=== PATIENT | male | born 1960 | race African-American/Black ===

== ENCOUNTER 2017-08-05 05:21 | Emergency (ER) | payer MEDICAID, OTHER ==
[2017-08-05] MEDS ORDERED: Dextrose 50% Abboject 50 ML SYRINGE ONE (05:36)
[2017-08-05 05:48] LABS: #Basophils 0.1 thou/uL (0.0-0.2); #Eosinphils 0.1 thou/uL (0.0-0.7); #Lymphocytes 2.2 thou/uL (1.20-3.40); #Monocytes 0.6 thou/uL (0.11-0.59); #Neutrophils 5.1 thou/uL (1.40-6.50); %Basophils 0.6 % (0.0-1.0); %Eosinophils 1.8 % (0.0-10.0); %Lymphocytes 27.2 % (21.0-51.0); %Monocytes 7.3 % (0.0-10.0); Red Blood Cell (RBC) Count 5.36 mill/uL (4.70-6.10)
[2017-08-05] MEDS ORDERED: Ketorolac Tromethamine 30 MG/ML VIAL ONE (06:08)
[2017-08-05 06:12] LABS: ALT (SGPT) 9 U/L (8-55); AST (SGOT) 12 U/L (5-34); Alkaline Phosphatase 74 U/L (40-150); Anion Gap 15 mmol/L (10-20); BUN (Urea Nitrogen) 16 mg/dL (8.4-25.7); Bilirubin, Total 0.3 mg/dL (0.2-1.2); CK (CPK) 88 U/L (30-200); Calc. Creatinine Clearance 0 mL/min (70-130); Carbon Dioxide 25 mmol/L (22-29); Chloride 105 mmol/L (98-107); Estimated GFR-MDRD Greater than 90; Globulin 3.3 g/dL (2.4-3.5); Protein, Total 7.3 g/dL (6.0-8.3)
--- NOTE | 2017-08-05 07:15 | RAD ---
3 VIEWS LEFT SHOULDER: Date: 08/05/17 INDICATION: Shoulder pain. COMPARISON: Prior exam dated 04/03/15. FINDINGS: Mild glenohumeral and moderate AC joint osteoarthrosis is similar. Visualized left lung appears with in normal limits. IMPRESSION: No acute osseous abnormality. POS: [facility]
== END 2017-08-05 08:25 | disposition home or self-care (01) ==
LOC: ERS 05:21
DX: E10.649 Type 1 diabetes mellitus with hypoglycemia without coma (principal); T84.84XA Pain due to internal orthopedic prosthetic devices, implants and grafts, initial encounter; M25.512 Pain in left shoulder; E78.5 Hyperlipidemia, unspecified; I10 Essential (primary) hypertension; F20.9 Schizophrenia, unspecified; I25.2 Old myocardial infarction; F41.9 Anxiety disorder, unspecified; J45.909 Unspecified asthma, uncomplicated; Z86.73 Personal history of transient ischemic attack (TIA), and cerebral infarction without residual deficits
CPT/HCPCS: 36416; 80053; 85025; 96374; 96375; J1885

== ENCOUNTER 2017-08-06 01:33 | Emergency (ER) | payer OTHER ==
[2017-08-06 02:45] LABS: Anion Gap 15 mmol/L (10-20); BUN (Urea Nitrogen) 23 mg/dL (8.4-25.7); Calc. Creatinine Clearance 0 mL/min (70-130); Calcium 9.3 mg/dL (7.8-10.44); Carbon Dioxide 19 mmol/L (22-29); Chloride 105 mmol/L (98-107); Estimated GFR-MDRD 77
== END 2017-08-06 03:35 | disposition home or self-care (01) ==
LOC: ERS 01:33
DX: E10.649 Type 1 diabetes mellitus with hypoglycemia without coma (principal); E78.5 Hyperlipidemia, unspecified; I10 Essential (primary) hypertension; J45.909 Unspecified asthma, uncomplicated; F41.9 Anxiety disorder, unspecified; F32.9 Major depressive disorder, single episode, unspecified; F20.9 Schizophrenia, unspecified; Z86.73 Personal history of transient ischemic attack (TIA), and cerebral infarction without residual deficits
CPT/HCPCS: 36416; 80048; 99285

== ENCOUNTER 2017-08-07 09:09 | Emergency (ER) | payer OTHER | END 2017-08-07 09:57 | disposition home or self-care (01) | LOC: ERS 09:09 | DX: G89.18 Other acute postprocedural pain (principal); M25.512 Pain in left shoulder; E78.5 Hyperlipidemia, unspecified; E10.9 Type 1 diabetes mellitus without complications; I10 Essential (primary) hypertension; J45.909 Unspecified asthma, uncomplicated; F41.9 Anxiety disorder, unspecified; F20.9 Schizophrenia, unspecified; I25.2 Old myocardial infarction; F29 Unspecified psychosis not due to a substance or known physiological condition; F32.9 Major depressive disorder, single episode, unspecified | CPT/HCPCS: 99283 ==

== ENCOUNTER 2017-08-19 18:27 | Observation (INO) | payer OTHER ==
[2017-08-19] MEDS ORDERED: Dextrose 50% Abboject 50 ML SYRINGE ONE ×2 (19:18→20:59)
[2017-08-19 19:50] LABS: #Eosinphils 0.2 thou/uL (0.0-0.7); #Lymphocytes 2.1 thou/uL (1.20-3.40); #Monocytes 1.1 thou/uL (0.11-0.59); #Neutrophils 12.2 thou/uL (1.40-6.50); %Eosinophils 1.2 % (0.0-10.0); %Lymphocytes 13.7 % (21.0-51.0); %Monocytes 6.8 % (0.0-10.0); Hematocrit 50.4 % (42.0-52.0); Mean Platelet Volume 6.8 fL (7.4-10.4); Red Blood Cell (RBC) Count 5.92 mill/uL (4.70-6.10); White Blood Cell (WBC) Count 15.5 thou/uL (4.8-10.8)
[2017-08-19 20:19] LABS: ALT (SGPT) 12 U/L (8-55); AST (SGOT) 15 U/L (5-34); Alkaline Phosphatase 83 U/L (40-150); Anion Gap 15 mmol/L (10-20); BUN (Urea Nitrogen) 15 mg/dL (8.4-25.7); Bilirubin, Total 0.6 mg/dL (0.2-1.2); Calc. Creatinine Clearance 0 mL/min (70-130); Calcium 9.4 mg/dL (7.8-10.44); Carbon Dioxide 22 mmol/L (22-29); Chloride 104 mmol/L (98-107); Estimated GFR-MDRD 71; Globulin 3.5 g/dL (2.4-3.5); Protein, Total 7.6 g/dL (6.0-8.3)
[2017-08-19] MEDS ORDERED: Potassium Chloride 20 MEQ TAB ONE (20:48)
[2017-08-19 23:42] LABS: Troponin I Less than 0.010 ng/mL (< 0.028)
--- NOTE | 2017-08-19 23:44 | PDOC.EVN ---
Event Note - Event Note Event Note: [id number] h&p dictated 1. Syncope 2. Hypoglycemia 3. HTN 4. H/O CAD 5. H/O HPL PLAN: SEE ORDERS
[2017-08-20] MEDS ORDERED: Ondansetron HCl/PF 4 MG/2 ML Vial IVP PRN (00:30)
[2017-08-20] MEDS ORDERED: Acetaminophen 325 MG TAB PO PRN (00:30)
[2017-08-20] MEDS ORDERED: Furosemide 40 MG TAB PO PRN (00:31)
[2017-08-20] MEDS ORDERED: Dextrose 10% in Water 1,000 ML IV SCH (00:45)
--- NOTE | 2017-08-20 00:46 | CT ---
CT BRAIN WITHOUT CONTRAST 08/19/17 HISTORY: CVA. Hypoglycemia. FINDINGS: Comparison is made with exam of 11/03/16. No evidence of acute infarct, hemorrhage, midline shift, or abnormal extra-axial fluid collections a re seen. The ventricular size is appropriate and the basilar cisterns patent. The bony calvarium is intact. The visualized paranasal sinuses are well aerated. IMPRESSION: No CT evidence of acute intracranial process. POS: [facility]
[2017-08-20] MEDS: HYDROcodone/Acetaminophen 5/325 mg Tablet PO PRN ×2 (01:02→06:30)
[2017-08-20 01:04] VITALS: BMI 26.6
[2017-08-20] MEDS ORDERED: cloNIDine 0.1 MG TAB PO PRN (01:45)
[2017-08-20] MEDS ORDERED: NIFEdipine XL 60 MG TAB PO SCH (01:45)
[2017-08-20 05:20] LABS: #Lymphocytes 1.5 thou/uL (1.20-3.40); #Monocytes 0.6 thou/uL (0.11-0.59); #Neutrophils 6.3 thou/uL (1.40-6.50); %Basophils 0.5 % (0.0-1.0); %Eosinophils 0.3 % (0.0-10.0); %Lymphocytes 17.3 % (21.0-51.0); %Monocytes 7.6 % (0.0-10.0); Red Blood Cell (RBC) Count 5.63 mill/uL (4.70-6.10); White Blood Cell (WBC) Count 8.4 thou/uL (4.8-10.8)
[2017-08-20 05:51] LABS: Troponin I 0.018 ng/mL (< 0.028)
[2017-08-20 06:09] LABS: Anion Gap 11 mmol/L (10-20); BUN (Urea Nitrogen) 14 mg/dL (8.4-25.7); Calc. Creatinine Clearance 90 mL/min (70-130); Calcium 9.5 mg/dL (7.8-10.44); Carbon Dioxide 22 mmol/L (22-29); Chloride 104 mmol/L (98-107); Estimated GFR-MDRD Greater than 90
--- NOTE | 2017-08-20 06:23 | HP ---
DATE OF ADMISSION: 08/17/2017 CHIEF COMPLAINT: Hypoglycemia. HISTORY OF PRESENT ILLNESS: The patient is a 56-year-old male with past medical history of diabetes type 2, hypertension, hyperlipidemia, schizophrenia, anxiety, depression who came to the ER followi ng syncope. Patient was at home and he passed out, so paramedics were called. Upon paramedics' arr ival, the patient's blood sugar was checked, it was around 30, so the patient was given an amp of D5 0 and glucagon and brought to the ER. Upon ER arrival, the patient is still having hypoglycemic epi sodes. His blood sugars dropping into 35 x 2 and 57, so the patient was given 2 amps of D50 and I w as called for the admission. Patient denies any chest pain, denies any palpation. Denies dizziness , denies lightheadedness. The patient said he passed out possibly from low blood sugar. Denies any fever, denies any chills. PAST MEDICAL HISTORY: As per HPI. PAST SURGICAL HISTORY: Stent placement, CABG. SOCIAL HISTORY: Denies smoking, denies alcohol, denies any drugs. FAMILY HISTORY: Positive for heart problems. REVIEW OF SYSTEMS: Constitutional: Denies any fever, denies any chills. Eyes: No vision problems . Ears: Denies hearing loss. Neck: Denies any neck pain. Cardiovascular System: Denies any jenae st pain, denies any palpitation. Respiratory: Denies any cough. Denies sputum production. Gastro intestinal: Denies nausea, vomiting. Musculoskeletal: Denies any joint deformities. Cranial nerv e systems: Positive for syncope. Psychiatric: Denies depression or anxiety. Integument: Denies any rash. Genitourinary: Denies dysuria. All other review of systems are reviewed and are negativ e. PHYSICAL EXAMINATION: CONSTITUTIONAL/VITAL SIGNS: At the time of H\T\P performed, blood pressure is 190/98, pulse ox 96%, heart rate 18. GENERAL APPEARANCE: This patient appears comfortable. HEENT: Pupils equal, round, and reactive to light. Anterior nares patent. Nose normal. Ears norm al. Teeth intact. Tongue is moist. NECK: Supple. No JVD. CARDIOVASCULAR: S1, S2 present. Regular rate and rhythm. No murmurs, no rubs, no gallops. RESPIRATORY SYSTEM: No wheezing, no rhonchi. Breath sounds bilaterally. MUSCULOSKELETAL: No joint deformities. Left shoulder positive for intraosseous catheter. CRANIAL NERVE SYSTEM: Awake, follows commands. Speech intact, sensory intact. PSYCHIATRIC: Mood appropriate at this time. INTEGUMENTARY: No obvious rashes seen. LABORATORY DATA AND IMAGING: At the time of H\T\P performed, sodium 138, potassium 3.2, chloride 10 4, CO2 , BUN of 15, creatinine 1.27, troponins are pending. AST 50, ALT 12. EKG, no acute ST changes. IMPRESSION AND PLAN: The patient is a 56-year-old male: 1. Syncope, probably secondary to hypoglycemia. Monitor the patient closely. Plan to check serial cardiac enzymes. Plan to check 2D echo. Plan to check abdominal ultrasound to rule out stenosis a nd we will follow the patient. 2. Hypoglycemia. Plan to monitor blood sugars closely. The patient said he lastly took insulin wa s this afternoon. We will start the patient on D10 at 30 per hour and we will monitor blood sugars closely and we will follow the patient. 3. History of hypertension. Monitor blood pressure. Continue blood pressure medications. 4. History of coronary artery disease. Continue home medication. 5. History of hyperlipidemia. Continue statin. The case was discussed in detail with the patient. The patient is full code.
[2017-08-20] MEDS ORDERED: Heparin 5,000 UNITS/ML VIAL SC SCH (09:00)
[2017-08-20] MEDS ORDERED: Rivaroxaban 10 MG TAB PO SCH (09:00)
[2017-08-20] MEDS ORDERED: Dextrose 5% in Water 1,000 ML IV PRN (10:29)
[2017-08-20] MEDS ORDERED: Dextrose 50% Abboject 50 ML SYRINGE SLOW IVP PRN (10:29)
[2017-08-20] MEDS ORDERED: Sodium Chloride 0.9% 1,000 ML IV SCH (10:30)
[2017-08-20] MEDS ORDERED: HYDROcodone/Acetaminophen 10/325 mg Tablet PO PRN (11:27)
--- NOTE | 2017-08-20 11:35 | PDOC.PN ---
- Subjective Encounter Start Date: 08/20/17 Encounter Start Time: 11:32 doing fine this am telemetry is sinus rhythm no more syncopal episode no cp no sob c/o pain in lower back - Objective MAR Reviewed: Yes Vital Signs & Weight: Vital Signs (12 hours) Temp Pulse Resp BP BP Pulse Ox 08/20/17 07:27 98.0 F 68 20 119/57 L 98 08/20/17 05:00 98.4 F 71 20 134/56 L 98 08/20/17 01:57 71 198/89 H 08/20/17 01:56 198/89 H 08/20/17 01:23 98.1 F 69 24 H 202/99 H I&O: 08/19/17 08/20/17 08/21/17 06:59 06:59 06:59 Intake Total 423 Balance 423 Result Diagrams: 08/20/17 05:05 08/20/17 05:05 Additional Labs: Accuchecks 08/20/17 08/20/17 09:42 00:53 POC Glucose 325 H 154 H Phys Exam - Physical Examination Constitutional: NAD HEENT: PERRLA Neck: no JVD Respiratory: no wheezing Cardiovascular: no significant murmur Gastrointestinal: non-tender Musculoskeletal: pulses present Neurological: moves all 4 limbs Psychiatric: A&O x 3 Dx/Plan (1) Syncopal episodes Code(s): R55 - SYNCOPE AND COLLAPSE Status: Acute (2) Esophagitis Code(s): K20.9 - ESOPHAGITIS, UNSPECIFIED Status: Acute (3) CAD (coronary artery disease) Code(s): I25.10 - ATHSCL HEART DISEASE OF [place] CORONARY ARTERY W/O ANG PCTRS Status: Chronic Qualifiers: (4) Cocaine abuse Code(s): F14.10 - COCAINE ABUSE, UNCOMPLICATED Status: Chronic (5) DM (diabetes mellitus), type 2, uncontrolled Code(s): E11.65 - TYPE 2 DIABETES MELLITUS WITH HYPERGLYCEMIA Status: Chronic Comment: (6) HTN (hypertension) Code(s): I10 - ESSENTIAL (PRIMARY) HYPERTENSION Status: Chronic - Plan * switch to iss * uds * monitor lytes, glucose and tele * walking program * optimise lantus dose on d/c * possible d/c in am
[2017-08-20] MEDS: HumaLOG 300 UNITS/3 ML VIAL SC PRN ×2 (11:38→18:22)
[2017-08-20] MEDS: Famotidine 20 MG TAB PO SCH ×2 (11:43→20:08)
[2017-08-20] MEDS: Potassium Chloride 20 MEQ TAB PO SCH ×2 (11:43→18:22)
[2017-08-20] MEDS: NIFEdipine XL 60 MG TAB PO SCH ×2 (11:45→20:07)
[2017-08-20] MEDS: Megestrol Acetate 40 MG TAB PO SCH (11:46)
--- NOTE | 2017-08-20 12:16 | RAD ---
2 VIEWS CHEST: Date: 08/20/17 COMPARISON: 08/17/16. HISTORY: Shortness of breath. FINDINGS: Two views of the chest show a normal sized cardiomediastinal silhouette. The patient is status post sternotomy. There is no evidence of consolidation, mass, or pleural effusion. Degenerative changes a re seen in the spine. IMPRESSION: No evidence of acute cardiopulmonary disease. POS: [facility]
[2017-08-20] MEDS: Sodium Chloride 0.9% 1,000 ML IV SCH (12:55)
[2017-08-20 13:31] LABS: Anion Gap 15 mmol/L (10-20); BUN (Urea Nitrogen) 13 mg/dL (8.4-25.7); Calc. Creatinine Clearance 85 mL/min (70-130); Calcium 9.3 mg/dL (7.8-10.44); Carbon Dioxide 19 mmol/L (22-29); Chloride 103 mmol/L (98-107); Estimated GFR-MDRD 87
[2017-08-20 13:37] LABS: Troponin I 0.026 ng/mL (< 0.028)
[2017-08-20 17:01] LABS: Bilirubin Negative (Negative); Blood, Urine Negative (Negative); Glucose, Urine (Dipstick) >=1000 mg/dL (Negative); Ketone, Urine Negative (Negative); Nitrite Negative (Negative); Protein, Urine (Dipstick) Negative (Neg-Trace); Urobilinogen 0.2 mg/dL (0.2-1.0)
[2017-08-20 17:13] LABS: Amphetamine Not Detected (NotDetected); Methadone Not Detected (NotDetected); Methamphetamine Not Detected (NotDetected)
[2017-08-20] MEDS ORDERED: HumaLOG 300 UNITS/3 ML VIAL SC PRN (21:16)
[2017-08-21] MEDS ORDERED: diphenhydrAMINE 50 MG CAP PO PRN (01:14)
[2017-08-21 05:16] LABS: #Eosinphils 0.2 thou/uL (0.0-0.7); #Lymphocytes 2.3 thou/uL (1.20-3.40); #Monocytes 0.7 thou/uL (0.11-0.59); #Neutrophils 4.1 thou/uL (1.40-6.50); %Basophils 0.4 % (0.0-1.0); %Eosinophils 3.2 % (0.0-10.0); %Lymphocytes 31.1 % (21.0-51.0); %Monocytes 9.7 % (0.0-10.0); Hematocrit 48.8 % (42.0-52.0); Red Blood Cell (RBC) Count 5.78 mill/uL (4.70-6.10); White Blood Cell (WBC) Count 7.3 thou/uL (4.8-10.8)
[2017-08-21] MEDS: Sodium Chloride 0.9% 1,000 ML IV SCH (05:35)
[2017-08-21] MEDS: Famotidine 20 MG TAB PO SCH (09:32)
[2017-08-21] MEDS: NIFEdipine XL 60 MG TAB PO SCH (09:33)
[2017-08-21] MEDS: Megestrol Acetate 40 MG TAB PO SCH (09:34)
[2017-08-21] MEDS: Potassium Chloride 20 MEQ TAB PO SCH (10:25)
[2017-08-21 11:28] VITALS: BP 142/65; TEMP 98.1
--- NOTE | 2017-08-21 11:43 | PDOC.PN ---
- Subjective Encounter Start Date: 08/21/17 Encounter Start Time: 11:42 Patient seen and examined. No new complaints. No overnight events - Objective MAR Reviewed: Yes Vital Signs & Weight: Vital Signs (12 hours) Temp Pulse Resp BP BP Pulse Ox 08/21/17 11:28 98.1 F 94 16 142/65 H 97 08/21/17 09:33 88 137/63 08/21/17 08:00 99.1 F 88 16 08/21/17 07:54 99.1 F 88 16 137/63 94 L 08/21/17 04:40 98.7 F 86 20 139/65 95 I&O: 08/20/17 08/21/17 08/22/17 06:59 06:59 06:59 Intake Total 423 2157 Balance 423 2157 Result Diagrams: 08/21/17 04:42 08/20/17 12:54 Additional Labs: Accuchecks 08/21/17 08/20/17 08/20/17 04:43 20:13 16:44 POC Glucose 144 H 272 H 292 H Phys Exam - Physical Examination Constitutional: NAD HEENT: moist MMs Neck: no JVD Respiratory: no wheezing Cardiovascular: no significant murmur Gastrointestinal: non-tender Musculoskeletal: pulses present Neurological: normal sensation Psychiatric: A&O x 3 Dx/Plan (1) Syncopal episodes Code(s): R55 - SYNCOPE AND COLLAPSE Status: Resolved Comment: due to hypoglycemia (2) Esophagitis Code(s): K20.9 - ESOPHAGITIS, UNSPECIFIED Status: Acute (3) CAD (coronary artery disease) Code(s): I25.10 - ATHSCL HEART DISEASE OF [place] CORONARY ARTERY W/O ANG PCTRS Status: Chronic Qualifiers: (4) Cocaine abuse Code(s): F14.10 - COCAINE ABUSE, UNCOMPLICATED Status: Chronic (5) DM (diabetes mellitus), type 2, uncontrolled Code(s): E11.65 - TYPE 2 DIABETES MELLITUS WITH HYPERGLYCEMIA Status: Chronic Comment: (6) HTN (hypertension) Code(s): I10 - ESSENTIAL (PRIMARY) HYPERTENSION Status: Chronic - Plan * syncope due to hypoglycemia * lantus dose optimised * f/u with pcp * pt to use mild hosp sliding scale and maintain log of sugars
[2017-08-21] MEDS: HumaLOG 300 UNITS/3 ML VIAL SC PRN (12:08)
--- NOTE | 2017-08-21 13:55 | DIS ---
DATE OF ADMISSION: 08/20/2017 DATE OF DISCHARGE: 08/21/2017 DISCHARGE DIAGNOSES: Hypoglycemia, episode of syncope because of hypoglycemia, diabetes mellitus, h yperlipidemia, hypertension, anxiety, depression, and coronary artery disease. DISCHARGE MEDICATIONS: Change in the dose of Lantus to 9 units b.i.d., use of regular insulin per s liding scale and continuation of all other home medications. DISPOSITION: Home. BRIEF HOSPITAL COURSE: This 56-year-old pleasant gentleman came into the hospital with syncopal epi sode. Please refer to the admitting physician's H and P for further details. Because of the hypogl ycemia, he was put on dextrose IV. He improved with this treatment, and once the sugars stabilized, I stopped the dextrose and put him on a diabetic diet and treated his sugars with sliding scale. T his helped me to optimize the treatment, and right now, I believe a total of 18 units of Lantus is m ore than enough for him in a day. He knows how to use the mild sliding scale. He is asked to do wi th regular insulin and maintain a log and check his sugars 4 times at a.c. meal and at bedtime and t hen take it to his primary care physician for further optimization of the dose of the Lantus. He un derstands all this. He is asked to come back to the emergency room in case symptoms recur. Total time for this discharge took 35 minutes. He is medically stable to be discharged.
== END 2017-08-21 13:19 | disposition home or self-care (01) ==
LOC: ERS 18:27 → 2SW 08-20 00:50
PROVIDERS: ADMIT Internal Medicine; ATTEND Internal Medicine
DX: E11.649 Type 2 diabetes mellitus with hypoglycemia without coma (principal); R55 Syncope and collapse; E78.5 Hyperlipidemia, unspecified; I10 Essential (primary) hypertension; I25.10 Atherosclerotic heart disease of native coronary artery without angina pectoris; F20.9 Schizophrenia, unspecified; F32.9 Major depressive disorder, single episode, unspecified; F41.9 Anxiety disorder, unspecified; Z88.8 Allergy status to other drugs, medicaments and biological substances; Z91.010 Allergy to peanuts; Z79.4 Long term (current) use of insulin; Z79.899 Other long term (current) drug therapy; Z95.1 Presence of aortocoronary bypass graft; Z95.5 Presence of coronary angioplasty implant and graft
CPT/HCPCS: 36415; 36416; 70450; 71020; 80048; 80053; 80306; 81003; 82553; 83880; 84484; 85025; 93005; 96361; 96365; 96366; 96374; 96376; A4216; G0378; J1644

== ENCOUNTER 2017-08-29 13:48 | Emergency (ER) | payer OTHER ==
[2017-08-29] MEDS ORDERED: Fluorescein Opthalmic Strip ONE (14:09)
[2017-08-29] MEDS ORDERED: Proparacaine 0.5% Opth 15 ML BOT ONE (14:10)
== END 2017-08-29 14:50 | disposition home or self-care (01) ==
LOC: ERS 13:48
DX: S05.02XA Injury of conjunctiva and corneal abrasion without foreign body, left eye, initial encounter (principal); E78.5 Hyperlipidemia, unspecified; I10 Essential (primary) hypertension; J45.909 Unspecified asthma, uncomplicated; I25.2 Old myocardial infarction; F41.9 Anxiety disorder, unspecified; F20.9 Schizophrenia, unspecified; Z86.73 Personal history of transient ischemic attack (TIA), and cerebral infarction without residual deficits; Z79.4 Long term (current) use of insulin; Z79.899 Other long term (current) drug therapy; Y33.XXXA Other specified events, undetermined intent, initial encounter

== ENCOUNTER 2017-08-29 20:12 | Emergency (ER) | payer OTHER ==
[2017-08-29 21:36] LABS: #Eosinphils 0.2 thou/uL (0.0-0.7); #Lymphocytes 1.3 thou/uL (1.20-3.40); #Monocytes 0.7 thou/uL (0.11-0.59); #Neutrophils 2.9 thou/uL (1.40-6.50); %Basophils 0.7 % (0.0-1.0); %Eosinophils 4.3 % (0.0-10.0); %Lymphocytes 26.1 % (21.0-51.0); %Monocytes 12.7 % (0.0-10.0); Hematocrit 45.6 % (42.0-52.0); Mean Platelet Volume 6.7 fL (7.4-10.4); Red Blood Cell (RBC) Count 5.39 mill/uL (4.70-6.10); White Blood Cell (WBC) Count 5.1 thou/uL (4.8-10.8)
[2017-08-29] MEDS ORDERED: Morphine 2 MG/ML SYRINGE ONE (21:51)
[2017-08-29] MEDS ORDERED: Morphine 10 MG/ML VIAL ONE (21:52)
[2017-08-29 21:55] LABS: ALT (SGPT) 15 U/L (8-55); AST (SGOT) 11 U/L (5-34); Alkaline Phosphatase 82 U/L (40-150); Anion Gap 15 mmol/L (10-20); BUN (Urea Nitrogen) 7 mg/dL (8.4-25.7); Bilirubin, Total 0.3 mg/dL (0.2-1.2); Calc. Creatinine Clearance 0 mL/min (70-130); Calcium 9.1 mg/dL (7.8-10.44); Carbon Dioxide 21 mmol/L (22-29); Chloride 102 mmol/L (98-107); Estimated GFR-MDRD 89; Globulin 3.1 g/dL (2.4-3.5); Protein, Total 6.9 g/dL (6.0-8.3)
== END 2017-08-29 22:49 | disposition home or self-care (01) ==
LOC: ERS 20:12
DX: S05.02XA Injury of conjunctiva and corneal abrasion without foreign body, left eye, initial encounter (principal); T50.905A Adverse effect of unspecified drugs, medicaments and biological substances, initial encounter; E10.9 Type 1 diabetes mellitus without complications; E78.5 Hyperlipidemia, unspecified; I10 Essential (primary) hypertension; J45.909 Unspecified asthma, uncomplicated; I25.2 Old myocardial infarction; F41.9 Anxiety disorder, unspecified; F32.9 Major depressive disorder, single episode, unspecified; F20.9 Schizophrenia, unspecified; Z79.4 Long term (current) use of insulin; Z86.73 Personal history of transient ischemic attack (TIA), and cerebral infarction without residual deficits; W19.XXXA Unspecified fall, initial encounter
CPT/HCPCS: 36415; 80053; 85025; 93005; 96372; 99283; J2270

== ENCOUNTER 2017-10-16 20:21 | Emergency (ER) | payer OTHER ==
[2017-10-16 20:46] LABS: #Basophils 0.1 thou/uL (0.0-0.2); #Eosinphils 0.1 thou/uL (0.0-0.7); #Lymphocytes 1.9 thou/uL (1.20-3.40); #Monocytes 1.1 thou/uL (0.11-0.59); #Neutrophils 9.4 thou/uL (1.40-6.50); %Basophils 0.5 % (0.0-1.0); %Eosinophils 0.9 % (0.0-10.0); %Monocytes 8.6 % (0.0-10.0); Hematocrit 46.2 % (42.0-52.0); Mean Platelet Volume 6.9 fL (7.4-10.4); Red Blood Cell (RBC) Count 5.42 mill/uL (4.70-6.10); White Blood Cell (WBC) Count 12.5 thou/uL (4.8-10.8)
[2017-10-16 21:09] LABS: ALT (SGPT) 9 U/L (8-55); AST (SGOT) 12 U/L (5-34); Alkaline Phosphatase 89 U/L (40-150); Anion Gap 12 mmol/L (10-20); BUN (Urea Nitrogen) 9 mg/dL (8.4-25.7); Bilirubin, Total 0.3 mg/dL (0.2-1.2); Calc. Creatinine Clearance 0 mL/min (70-130); Calcium 9.4 mg/dL (7.8-10.44); Carbon Dioxide 27 mmol/L (22-29); Chloride 105 mmol/L (98-107); Estimated GFR-MDRD Greater than 90; Globulin 3.1 g/dL (2.4-3.5)
[2017-10-16] MEDS ORDERED: HYDROcodone/Acetaminophen 5/325 mg Tablet ONE (23:16)
--- NOTE | 2017-10-31 15:00 | EKG ---
Test Reason : Blood Pressure : / mmHG Vent. Rate : 087 BPM Atrial Rate : 087 BPM P-R Int : 154 ms QRS Dur : 088 ms QT Int : 422 ms P-R-T Axes : 067 009 018 degrees QTc Int : 507 ms Normal sinus rhythm Prolonged QT Abnormal ECG Confirmed by LEXIE THURSTON D.O. ([id number]), legal editor KATE ESCALANTE ([id number]) on 10/31/2017 2:59:27 PM Referred By: Confirmed By:LEXIE THURSTON D.O.
== END 2017-10-16 23:23 | disposition home or self-care (01) ==
LOC: ERS 20:21
DX: E10.649 Type 1 diabetes mellitus with hypoglycemia without coma (principal); E78.5 Hyperlipidemia, unspecified; I10 Essential (primary) hypertension; J45.909 Unspecified asthma, uncomplicated; I25.2 Old myocardial infarction; Z86.73 Personal history of transient ischemic attack (TIA), and cerebral infarction without residual deficits; F41.9 Anxiety disorder, unspecified; F32.9 Major depressive disorder, single episode, unspecified; F20.9 Schizophrenia, unspecified
CPT/HCPCS: 36416; 80053; 85025; 93005; 96360; 96361

== ENCOUNTER 2017-10-23 16:53 | Emergency (ER) | payer OTHER ==
[2017-10-23 17:57] LABS: #Basophils 0.1 thou/uL (0.0-0.2); #Eosinphils 0.2 thou/uL (0.0-0.7); #Monocytes 0.4 thou/uL (0.11-0.59); #Neutrophils 2.3 thou/uL (1.40-6.50); %Basophils 1.5 % (0.0-1.0); %Eosinophils 4.4 % (0.0-10.0); %Lymphocytes 40.1 % (21.0-51.0); %Monocytes 8.5 % (0.0-10.0); Mean Platelet Volume 6.9 fL (7.4-10.4); Red Blood Cell (RBC) Count 5.12 mill/uL (4.70-6.10); White Blood Cell (WBC) Count 5.1 thou/uL (4.8-10.8)
[2017-10-23 18:06] LABS: Anion Gap 12 mmol/L (-14-95); Critical Call POC Critical Value; Lactate 4.49 mmol/L (0.50-2.20); POC Est. GFR-MDRD-African-Amer Greater than 60; POC Estimated GFR-MDRD Greater than 60; T. Carbon Dioxide 23.6 mmol/L (1.0-85.0); pH (Venous) 7.378 (7.35-7.45); vO2 Saturation-calc 95.7 % (0.0-100.0)
[2017-10-23 18:15] LABS: Hemoglobin A1c 9.2 % (4.0-6.0)
[2017-10-23 18:18] LABS: ALT (SGPT) 14 U/L (8-55); AST (SGOT) 15 U/L (5-34); Alkaline Phosphatase 82 U/L (40-150); Anion Gap 16 mmol/L (10-20); BUN (Urea Nitrogen) 9 mg/dL (8.4-25.7); Bilirubin, Total 0.3 mg/dL (0.2-1.2); Calc. Creatinine Clearance 0 mL/min (70-130); Calcium 9.2 mg/dL (7.8-10.44); Carbon Dioxide 21 mmol/L (22-29); Chloride 104 mmol/L (98-107); Estimated GFR-MDRD 88; Lipase Less than 4 U/L (8-78); Protein, Total 6.7 g/dL (6.0-8.3)
--- NOTE | 2017-10-23 18:43 | RAD ---
RIGHT SHOULDER THREE VIEWS: 10/23/17 HISTORY: 57-year-old male with history of right shoulder pain following a fall recently. There is some old def ormity of the distal right clavicle which is stable from the prior study of 10/18/16. Arthrosis and d egenerative changes. No acute fracture or dislocation. IMPRESSION: No acute fracture or dislocation. Distal right clavicle deformity probably related to old trauma but stable. POS: [facility]
[2017-10-23 19:06] LABS: Bilirubin Negative (Negative); Blood, Urine Negative (Negative); Glucose, Urine (Dipstick) >=1000 mg/dL (Negative); Ketone, Urine Negative (Negative); Nitrite Negative (Negative); Protein, Urine (Dipstick) Negative (Neg-Trace); Urobilinogen 0.2 mg/dL (0.2-1.0)
[2017-10-23 19:17] LABS: Lactic Acid - Sepsis 4.3 mmol/L (0.5-2.2)
[2017-10-23] MEDS ORDERED: HYDROcodone/Acetaminophen 10/325 mg Tablet ONE ×2 (21:05→23:46)
== END 2017-10-23 23:55 | disposition home or self-care (01) ==
LOC: ERS 16:53
DX: M25.511 Pain in right shoulder (principal); E10.9 Type 1 diabetes mellitus without complications; E78.5 Hyperlipidemia, unspecified; I10 Essential (primary) hypertension; J45.909 Unspecified asthma, uncomplicated; I25.2 Old myocardial infarction; G89.29 Other chronic pain; F41.9 Anxiety disorder, unspecified; F20.9 Schizophrenia, unspecified; W18.30XA Fall on same level, unspecified, initial encounter
CPT/HCPCS: 36415; 36416; 80053; 81003; 82010; 82330; 82803; 83036; 83605; 83690; 83930; 85025; 96360; 96361

== ENCOUNTER 2017-11-23 17:03 | Emergency (ER) | payer OTHER | END 2017-11-23 21:50 | disposition left against medical advice (07) | LOC: ERS 17:03 | DX: Z53.21 Procedure and treatment not carried out due to patient leaving prior to being seen by health care provider (principal) | CPT/HCPCS: 36416 ==

== ENCOUNTER 2017-12-07 11:16 | Emergency (ER) | payer OTHER ==
[2017-12-07] MEDS ORDERED: Fluorescein Opthalmic Strip ONE (15:18)
[2017-12-07] MEDS ORDERED: Proparacaine 0.5% Opth 15 ML BOT ONE (15:20)
== END 2017-12-07 16:03 | disposition home or self-care (01) ==
LOC: ERS 11:16
DX: S05.02XA Injury of conjunctiva and corneal abrasion without foreign body, left eye, initial encounter (principal); E10.9 Type 1 diabetes mellitus without complications; I25.2 Old myocardial infarction; I10 Essential (primary) hypertension; F41.9 Anxiety disorder, unspecified; F32.9 Major depressive disorder, single episode, unspecified; X58.XXXA Exposure to other specified factors, initial encounter
CPT/HCPCS: 99283

== ENCOUNTER 2017-12-22 14:51 | Emergency (ER) | payer OTHER | END 2017-12-22 15:38 | disposition home or self-care (01) | LOC: ERS 14:51 | DX: E10.649 Type 1 diabetes mellitus with hypoglycemia without coma (principal); I10 Essential (primary) hypertension; I25.2 Old myocardial infarction; F41.9 Anxiety disorder, unspecified; F32.9 Major depressive disorder, single episode, unspecified | CPT/HCPCS: 36416; 99284 ==

== ENCOUNTER 2017-12-30 23:02 | Inpatient (IN) | payer OTHER ==
[2017-12-30] MEDS ORDERED: Dextrose 50% Abboject 50 ML SYRINGE ONE (23:25)
[2017-12-31] MEDS ORDERED: Lidocaine 1% (PF) 30 ML VIAL ONE (00:29)
[2017-12-31 00:56] LABS: #Eosinphils 0.1 thou/uL (0.0-0.7); #Lymphocytes 1.1 thou/uL (1.20-3.40); #Monocytes 0.9 thou/uL (0.11-0.59); #Neutrophils 11.3 thou/uL (1.40-6.50); %Basophils 0.1 % (0.0-1.0); %Eosinophils 0.4 % (0.0-10.0); %Lymphocytes 8.5 % (21.0-51.0); %Neutrophils 83.9 % (42.0-75.0); Hemoglobin 15.6 g/dL (14.0-18.0); Mean Corpuscular Hemoglobin 26.3 pg (27.0-31.0); Mean Corpuscular Volume 84.7 fl (80.0-94.0); Mean Platelet Volume 7.7 fL (7.4-10.4); Platelet Count 201 thou/uL (130-400); RBC Distribution Width 13.7 % (11.5-14.5); Red Blood Cell (RBC) Count 5.93 mill/uL (4.70-6.10); White Blood Cell (WBC) Count 13.4 thou/uL (4.8-10.8)
[2017-12-31] MEDS ORDERED: Ketorolac Tromethamine 30 MG/ML VIAL ONE (01:14)
[2017-12-31] MEDS ORDERED: Ondansetron HCl/PF 4 MG/2 ML Vial ONE (01:14)
[2017-12-31 01:18] LABS: Anion Gap 16 mmol/L (10-20); BUN (Urea Nitrogen) 17 mg/dL (8.4-25.7); Calc. Creatinine Clearance 0 mL/min (70-130); Calcium 10.1 mg/dL (7.8-10.44); Carbon Dioxide 25 mmol/L (22-29); Chloride 101 mmol/L (98-107); Estimated GFR-MDRD 71; Glucose 74 mg/dL (70-105); Sodium 139 mmol/L (136-145)
[2017-12-31 01:23] LABS: CKMB 2.2 ng/mL (0-6.6)
[2017-12-31 01:29] LABS: Base Excess-Venous 3.5 mmol/L (-30.0-30.0); Bicarbonate (HCO3v) 29.5 mmol/L (1.0-85.0); Calcium, Ionized 1.07 mmol/L (1.12-1.32); Hemoglobin - Calc 19.7 g/dL (12.0-18.0); O2 Tension (PvO2) 26.5 mmHg (35.0-45.0); Potassium 2.7 mmol/L (3.4-4.7); T. Carbon Dioxide 30.9 mmol/L (1.0-85.0); pH (Venous) 7.405 (7.35-7.45); vO2 Saturation-calc 48.6 % (0.0-100.0)
[2017-12-31 01:33] LABS: Troponin I 0.039 ng/mL (< 0.028)
[2017-12-31] MEDS ORDERED: Potassium Chloride 20 MEQ TAB ONE (01:41)
[2017-12-31] MEDS ORDERED: Dextrose 50% Abboject 50 ML SYRINGE ONE ×2 (01:49→03:49)
[2017-12-31] MEDS ORDERED: Sodium Chloride 77 MEQ in Dextrose 10% in Water 1,000 ML IV SCH ×4 (02:15)
[2017-12-31 02:32] LABS: Bilirubin Negative (Negative); Blood, Urine Negative (Negative); Clarity CLEAR (Clear); Glucose, Urine (Dipstick) 250 mg/dL (Negative); Leukocyte Negative (Negative); Nitrite Negative (Negative); Protein, Urine (Dipstick) Negative (Neg-Trace); Specific Gravity, Urine 1.016 (1.002-1.036); pH, Urine 6.5 (5.0-9.0)
[2017-12-31 03:53] LABS: Troponin I 0.048 ng/mL (< 0.028)
[2017-12-31] MEDS ORDERED: Labetalol HCl 100 MG/20 ML VIAL ONE (03:57)
[2017-12-31 04:27] VITALS: BMI 28.3
[2017-12-31] MEDS ORDERED: Ondansetron ODT 4 MG TAB SL PRN (04:33)
[2017-12-31] MEDS ORDERED: Ondansetron HCl/PF 4 MG/2 ML Vial IVP PRN (04:33)
[2017-12-31] MEDS ORDERED: traMADol HCl 50 MG TAB PO PRN (06:18)
[2017-12-31] MEDS ORDERED: Dextrose 50% Abboject 50 ML SYRINGE SLOW IVP SCH (06:30)
[2017-12-31 06:57] LABS: Troponin I 0.048 ng/mL (< 0.028)
--- NOTE | 2017-12-31 07:49 | RAD ---
CHEST 1 VIEW: Date: 12/30/17 HISTORY: Emergency exam. Chest pain. COMPARISON: Chest 2 views dated 08/20/17. FINDINGS: Lungs are clear. No pneumothorax or effusion. Cardiac silhouette and mediastinal contours within norm al limits. Gastric bubble is seen. IMPRESSION: No acute intrathoracic abnormality. POS: [facility]
[2017-12-31] MEDS ORDERED: Senokot 8.6 MG TAB PO PRN (09:29)
[2017-12-31] MEDS ORDERED: Dextrose 5% in Water 1,000 ML IV PRN (09:29)
[2017-12-31] MEDS ORDERED: Acetaminophen 325 MG TAB PO PRN (09:29)
[2017-12-31] MEDS ORDERED: HumaLOG 300 UNITS/3 ML VIAL SC PRN (09:29)
[2017-12-31] MEDS ORDERED: Dextrose 50% Abboject 50 ML SYRINGE SLOW IVP PRN (09:29)
[2017-12-31] MEDS ORDERED: Guaifenesin DM 100-10/5 ML UDCUP PO PRN (09:29)
[2017-12-31] MEDS: HYDROcodone/Acetaminophen 10/325 mg Tablet PO PRN ×3 (10:08→20:40)
[2017-12-31] MEDS: Dextrose 5 % And 0.9 % NaCl 1,000 ML IV SCH (10:08)
--- NOTE | 2017-12-31 12:30 | HP ---
REASON FOR ADMISSION: Hypoglycemia and hypothermia. HISTORY OF PRESENT ILLNESS: The patient initially was brought to emergency room as he was unresponsive at home. He lives with his sister. When EMS arrived, the patient had a temperature of 96 degrees Fahrenheit rectally and initial fingerstick glucose was 41. He was given D50 and patient started to slowly awaken. After arriving in the ER, he was placed on D10 and was admitted to [facility]. The patient says he takes 30 units of Levemir twice daily and he also takes Humulin 5 units before meals. He says he has not changed any of his insulin dose. No complaints of cough or expectoration. No complaints of fever or urinary symptoms. The patient says he ambulates by himself and he did not have any untoward events yesterday. He had his regular meals as well. PAST MEDICAL AND SURGICAL HISTORY: History of diabetes mellitus type 1, history of schizophrenia, CABG, prior history of cocaine abuse and patient says he does not abuse it now, prior history of pulmonary embolism, anxiety, depression, hypertension and dyslipidemia. PERSONAL HISTORY: The patient denies substance abuse, alcohol or tobacco. He lives with his sister. FAMILY HISTORY: Positive for heart disease. ALLERGIES: To PEANUTS and PREDNISONE. CURRENT MEDICATIONS: The patient is on Levemir 30 units subcu twice daily, Humulin 5 units before meals 3 times a day, Lasix p.r.n., [place] 10/325 mg p.o. q.6 hourly p.r.n. and clonidine 0.2 mg p.o. twice daily. REVIEW OF SYSTEMS: The following complete review of systems was negative, unless otherwise mentioned in the HPI or below: Constitutional: Weight loss or gain, ability to conduct usual activities. Skin: Rash, itching. Eyes: Double vision, pain. ENT/Mouth: Nose bleeding, neck stiffness, pain, tenderness. Cardiovascular: Palpitations, dyspnea on exertion, orthopnea. Respiratory: Shortness of breath, wheezing, cough, hemoptysis, fever or night sweats. Gastrointestinal: Poor appetite, abdominal pain, heartburn, nausea, vomiting, constipation, or diarrhea. Genitourinary: Urgency, frequency, dysuria, nocturia. Musculoskeletal: Pain, swelling. Neurologic/Psychiatric: Anxiety, depression. Allergy/Immunologic: Skin rash, bleeding tendency. PHYSICAL EXAMINATION: GENERAL: The patient is a 57-year-old male who is currently not in any acute distress. VITAL SIGNS: Blood pressure 160/54, pulse 90 per minute, respiratory rate is 18 per minute, temperature 98.9 degrees currently and on arrival was 94 degrees , saturating 100% on room air. NECK: Supple. No elevated JVD. HEENT: Extraocular muscles intact. Pupils are reacting to light. Oral cavity mucous membranes are dry. No exudates or congestion. CARDIOVASCULAR SYSTEM: S1 and S2 heard. Regular rhythm. RESPIRATORY SYSTEM: Air entry 1+ bilateral. Scattered rhonchi plus. No rales or wheezes. ABDOMEN: Soft. Bowel sounds heard. No tenderness, rigidity or guarding. EXTREMITIES: No peripheral edema or calf tenderness. VASCULAR SYSTEM: Peripheral pulses 1+ bilateral. No ischemic ulcerations or gangrene. CENTRAL NERVOUS SYSTEM: No gross focal deficits seen. The patient is alert, awake and oriented well. PSYCHIATRIC SYSTEM: The patient's mood is euthymic. No hallucinations or delusions at present. LABORATORY AND X-RAY FINDINGS: White count of 13, hemoglobin and hematocrit 15 and 50, platelet count 201 with 83% neutrophils. Fingerstick glucose has been ranging from 49-109 on D10 drip. Troponin I is indeterminate with peaking up to 0.04, CK-MB is 2.2. Sodium 139, potassium 3.0, chloride 101, serum bicarbonate 25, BUN 17, creatinine 1.26 and glucose 74. Chest x-ray done shows no acute cardiopulmonary abnormalities. EKG done shows normal sinus rhythm at 79 beats per minute. There is old Q-wave seen in V1 and V2. CLINICAL IMPRESSION AND PLAN: The patient will be admitted to [facility] for recurrent hypoglycemia despite being on D10. There is no obvious source of infection as such. We will place him empirically on Levaquin. Blood and urine cultures will be obtained. The patient states he is compliant with his insulin. We will continue him on D10 for now until his fingerstick glucose is consistently above 150. We will also continue his clonidine as before and keep him on a regular diet for now. Urine drug screen will also be obtained in view of his prior history of substance abuse. [facility]
[2017-12-31 12:31] LABS: Acetaminophen Less than 6.0 mcg/mL (10.0-30.0); Alcohol Less than 10 mg/dL (Less than 10); Salicylate Less than 8.0 mg/dL (15.0-30.0)
[2017-12-31 16:00] LABS: Cocaine Metabolite Screen Not Detected (NotDetected); Medtox Reader # READER 1; Phencyclidine (PCP) Not Detected (NotDetected); THC/Cannabinoid Screen Not Detected (NotDetected)
[2017-12-31 16:01] LABS: Amphetamine Not Detected (NotDetected); Barbiturates Screen Not Detected (NotDetected); Benzodiazepine Screen Not Detected (NotDetected); Medtox Control Line Valid? VALID (VALID); Methadone Not Detected (NotDetected); Methamphetamine Not Detected (NotDetected); Opiate Screen Detected (NotDetected); Oxycodone Screen Not Detected (NotDetected); Tricyclic Screen Detected (NotDetected)
[2017-12-31] MEDS: cloNIDine 0.2 MG TAB PO SCH (20:41)
[2017-12-31] MEDS: Famotidine 20 MG TAB PO SCH (20:41)
[2018-01-01] MEDS: HumaLOG 300 UNITS/3 ML VIAL SC PRN ×5 (00:08→20:15)
[2018-01-01] MEDS: HYDROcodone/Acetaminophen 10/325 mg Tablet PO PRN ×3 (02:36→20:13)
[2018-01-01 05:51] LABS: #Eosinphils 0.3 thou/uL (0.0-0.7); #Lymphocytes 1.9 thou/uL (1.20-3.40); #Monocytes 0.8 thou/uL (0.11-0.59); #Neutrophils 2.6 thou/uL (1.40-6.50); %Basophils 0.6 % (0.0-1.0); %Eosinophils 5.2 % (0.0-10.0); %Lymphocytes 33.5 % (21.0-51.0); %Monocytes 14.8 % (0.0-10.0); %Neutrophils 45.8 % (42.0-75.0); Hemoglobin 14.8 g/dL (14.0-18.0); Mean Corpuscular Hemoglobin 27.8 pg (27.0-31.0); Mean Corpuscular Volume 84.5 fl (80.0-94.0); Mean Platelet Volume 7.9 fL (7.4-10.4); Platelet Count 182 thou/uL (130-400); RBC Distribution Width 13.8 % (11.5-14.5); Red Blood Cell (RBC) Count 5.31 mill/uL (4.70-6.10); White Blood Cell (WBC) Count 5.6 thou/uL (4.8-10.8)
[2018-01-01 05:59] LABS: Anion Gap 13 mmol/L (10-20); BUN (Urea Nitrogen) 13 mg/dL (8.4-25.7); Calc. Creatinine Clearance 94 mL/min (70-130); Calcium 9.3 mg/dL (7.8-10.44); Carbon Dioxide 24 mmol/L (22-29); Chloride 103 mmol/L (98-107); Estimated GFR-MDRD Greater than 90; Glucose 192 mg/dL (70-105); Potassium 4.9 mmol/L (3.5-5.1); Sodium 135 mmol/L (136-145)
[2018-01-01] MEDS: Dextrose 5 % And 0.9 % NaCl 1,000 ML IV SCH (06:14)
[2018-01-01] MEDS: Famotidine 20 MG TAB PO SCH ×2 (07:48→20:14)
[2018-01-01] MEDS: cloNIDine 0.2 MG TAB PO SCH ×2 (07:49→20:14)
[2018-01-01] MEDS: Enoxaparin Sodium 40 MG/0.4 ML SYRINGE SC SCH (07:50)
[2018-01-01] MEDS: Insulin Detemir 100 UNITS/ML 10 UNITS in Pre-Filled Syringe 1 EACH SC SCH ×2 (10:45→20:14)
--- NOTE | 2018-01-01 13:57 | PDOC.PN ---
- Subjective Encounter Start Date: 01/01/18 Encounter Start Time: 11:15 Subjective: awake, eating better, no nausea -: still has right shoulder pain - Objective Resuscitation Status: Resuscitation Status FULL:Full Resuscitation MAR Reviewed: Yes Vital Signs & Weight: Vital Signs (12 hours) Temp Pulse Resp BP BP Pulse Ox 01/01/18 12:09 98.2 F 72 18 129/76 96 01/01/18 07:51 99.2 F 81 18 97 01/01/18 07:49 151/84 H 01/01/18 07:40 99.2 F 87 18 134/84 95 01/01/18 04:00 97 F L 75 18 171/83 H 98 Weight Weight 180 lb 12.8 oz I&O: 12/31/17 01/01/18 01/02/18 06:59 06:59 06:59 Intake Total 404 480 Output Total 400 Balance 404 80 Result Diagrams: 01/01/18 04:46 01/01/18 04:46 Additional Labs: Accuchecks 01/01/18 01/01/18 01/01/18 11:56 08:02 04:42 POC Glucose 176 H 201 H 179 H 01/01/18 12/31/17 12/31/17 00:04 17:54 16:52 POC Glucose 403 H 274 H 249 H 12/31/17 12/31/17 15:04 13:59 POC Glucose 245 H 208 H Phys Exam - Physical Examination HEENT: PERRLA, moist MMs Neck: no JVD, supple Respiratory: no wheezing, no rales Cardiovascular: RRR, no significant murmur Gastrointestinal: soft, non-tender, positive bowel sounds Musculoskeletal: pulses present right shoulder edema/tender at IO site Neurological: non-focal, moves all 4 limbs Psychiatric: A&O x 3 Dx/Plan (1) Hypoglycemia Code(s): E16.2 - HYPOGLYCEMIA, UNSPECIFIED Status: Acute (2) CAD (coronary artery disease) Code(s): I25.10 - ATHSCL HEART DISEASE OF [place] CORONARY ARTERY W/O ANG PCTRS Status: Chronic Qualifiers: Coronary Disease-Associated Artery/Lesion type: bypass graft [place] vs. transplanted heart: [place] heart Associated angina: without angina Qualified Code(s): I25.810 - Atherosclerosis of coronary artery bypass graft(s) without angina pectoris (3) DM (diabetes mellitus), type 2, uncontrolled Code(s): E11.65 - TYPE 2 DIABETES MELLITUS WITH HYPERGLYCEMIA Status: Chronic Qualifiers: Diabetes mellitus complication status: with hypoglycemia Diabetes mellitus complication detail: without coma Diabetes mellitus broach grinder insulin use: with intermediate use Qualified Code(s): E11.649 - Type 2 diabetes mellitus with hypoglycemia without coma; Z79.4 - scrap iron cutter (current) use of insulin; Z79.4 - halfway (current) use of insulin; Z79.4 - halfway (current) use of insulin; Z79.4 - halfway (current) use of insulin Comment: (4) Dyslipidemia Code(s): E78.5 - HYPERLIPIDEMIA, UNSPECIFIED Status: Chronic (5) HTN (hypertension) Code(s): I10 - ESSENTIAL (PRIMARY) HYPERTENSION Status: Chronic Qualifiers: Hypertension type: essential hypertension Qualified Code(s): I10 - Essential (primary) hypertension (6) Schizophrenia Code(s): F20.9 - SCHIZOPHRENIA, UNSPECIFIED Status: Chronic Qualifiers: Schizophrenia type: unspecified Qualified Code(s): F20.9 - Schizophrenia, unspecified (7) Seizure disorder Code(s): G40.909 - EPILEPSY, UNSP, NOT INTRACTABLE, WITHOUT STATUS EPILEPTICUS Status: Chronic - Plan hemostable -: has starting to eat better -: dm is labile with fingersticks from 179-403 now -: start levemir 10u bid, uds is -ve this time -: dc plan in am, to amb in hallway as tolerated * . Review of Systems - Medications/Allergies Allergies/Adverse Reactions: Allergies Allergy/AdvReac Type Severity Reaction Status Date / Time peanut Allergy Anaphylaxis Verified 12/31/17 04:33 prednisone Allergy Hives Verified 12/31/17 04:33 Medications: Current Medications Acetaminophen (Tylenol) 650 mg PO Q4H PRN PRN Reason: Headache/Fever or Pain Hydrocodone Bitart/Acetaminophen ([place] 10/325) 1 tab PO Q4H PRN PRN Reason: Moderate Pain (4-6) Last Admin: 01/01/18 13:47 Dose: 1 tab Clonidine (Catapres) 0.2 mg PO BID [facility] Last Admin: 01/01/18 07:49 Dose: 0.2 mg Dextrose/Water (Dextrose 50%) 25 gm SLOW IVP PRN PRN PRN Reason: Hypoglycemia Enoxaparin Sodium (Lovenox) 40 mg SC 0900 [facility] Last Admin: 01/01/18 07:50 Dose: Not Given Famotidine (Pepcid) 20 mg PO BID [facility] Last Admin: 01/01/18 07:48 Dose: 20 mg Glucagon (Glucagon) 1 mg IM PRN PRN PRN Reason: Hypoglycemia Guaifenesin/Dextromethorphan (Robitussin Dm) 15 ml PO Q4H PRN PRN Reason: Cough Dextrose/Water (D5w) 1,000 mls @ 0 mls/hr IV .Q0M PRN; As Directed PRN Reason: Hypoglycemia Insulin Detemir 10 units/ (Miscellaneous Medication) 0.1 mls @ 0 mls/hr SC BID [facility] Last Admin: 01/01/18 10:45 Dose: 0.1 mls Insulin Human Lispro (Humalog) 0 units SC .MODERATE SLIDING SC PRN; Protocol PRN Reason: MODERATE SLIDING SCALE Last Admin: 01/01/18 08:06 Dose: 4 unit Insulin Human Lispro (Humalog) 0 units SC .BEDTIME SLIDING SC PRN; Protocol PRN Reason: BEDTIME SLIDING SCALE Last Admin: 01/01/18 00:08 Dose: 5 units Levofloxacin (Levaquin) 500 mg PO 0600 [facility] Last Admin: 01/01/18 06:15 Dose: 500 mg Senna (Senokot) 2 tab PO HSPRN PRN PRN Reason: Constipation
[2018-01-02] MEDS: HumaLOG 300 UNITS/3 ML VIAL SC PRN (05:47)
[2018-01-02 07:48] VITALS: TEMP 97.8
[2018-01-02] MEDS: Enoxaparin Sodium 40 MG/0.4 ML SYRINGE SC SCH (07:53)
[2018-01-02] MEDS: Famotidine 20 MG TAB PO SCH (07:53)
[2018-01-02] MEDS: cloNIDine 0.2 MG TAB PO SCH (07:53)
[2018-01-02 07:54] VITALS: BP 170/84
[2018-01-02] MEDS: Insulin Detemir 100 UNITS/ML 10 UNITS in Pre-Filled Syringe 1 EACH SC SCH (09:19)
--- NOTE | 2018-01-02 13:14 | EKG ---
Test Reason : AMS Blood Pressure : / mmHG Vent. Rate : 079 BPM Atrial Rate : 079 BPM P-R Int : 166 ms QRS Dur : 090 ms QT Int : 390 ms P-R-T Axes : 064 036 -21 degrees QTc Int : 447 ms Normal sinus rhythm Possible Left atrial enlargement Septal infarct , age undetermined T wave abnormality, consider inferior ischemia Abnormal ECG Confirmed by DHEERAJ FULTON, SHOAIB ([id number]), map editor CHRISTOPHER SIMON ([id number]) on 01/02/2018 1:14:32 PM Referred By: DHEERAJ Confirmed By:SHOAIB ESQUEDA MD
--- NOTE | 2018-01-02 13:34 | DIS ---
DATE OF ADMISSION: 12/31/2017 DATE OF DISCHARGE: 01/02/2018 PRIMARY CARE PHYSICIAN: Abdirashid Mcduffie M.D. CONDITION AT THE TIME OF DISCHARGE: Stable and improved. DISCHARGE DISPOSITION: Home. DISCHARGE MEDICATIONS: Lantus 10 units b.i.d. and Humalog insulin sliding scale, resume home medicat ions as follows: Clonidine 0.2 mg p.o. b.i.d., Lasix 40 mg as needed and [place] as needed. Please note that the patient was not prescribed any narcotics from [facility] at this time. DISCHARGE DIAGNOSES: 1. Hypoglycemia. 2. Type 2 diabetes mellitus. 3. Dyslipidemia. 4. Hypothermia secondary to hypoglycemia. 5. Hypertension. 6. History of coronary artery disease. HISTORY OF PRESENTING ILLNESS: Mr. Plata is a pleasant 57-year-old male with known history of adolfo nary artery disease, diabetes, dyslipidemia, schizophrenia and seizure disorder, who presented to the emergency room after he was found down with a blood sugar in the 40s. He lives with his sister and was found unresponsive by her. EMS found him and the rectal temperature was 96 degrees with glucose 41. He received D50 and woke up and was admitted to our facility. Please see admission history and physical for further details. HOSPITAL COURSE: The patient's hospitalization was rather unremarkable. His Lantus dose was decreas ed and he was continued on insulin sliding scale and he did not have any significant episodes of hypo glycemia. He was hemodynamically stable throughout his hospitalization. At this time, his dose has been decreased to 10 units of Lantus b.i.d. along with Humalog insulin moderate sliding scale. He is instructed to check his blood sugar at least 4 times a day and report to his primary care physician about any significant changes. Prescriptions were provided to him for both the Lantus and the [place] insulin sliding scale. PHYSICAL EXAMINATION: He was seen and examined prior to discharge. He is hemodynamically stable. VITAL SIGNS: Blood pressure 143/84, saturating 98% on room air, temperature 97.8, pulse of 69, respi rations 18, no acute distress, awake, alert, oriented x3, walking around in the hospital. CHEST: Clear to auscultation. HEART: Rate and rhythm is regular. LABORATORY DATA: Labs pending at the time, blood cultures which remained negative at 48 hours. He is instructed to follow up with his primary care physician in 7-10 days.
== END 2018-01-02 14:37 | disposition home or self-care (01) | DRG 639 ==
LOC: ERS 23:02 → IMCU/EMU 12-31 00:25 → T4-B 12-31 21:06
PROVIDERS: ADMIT Family Medicine; ATTEND Family Medicine
DX: E11.649 Type 2 diabetes mellitus with hypoglycemia without coma (principal); F20.9 Schizophrenia, unspecified; R68.0 Hypothermia, not associated with low environmental temperature; F41.9 Anxiety disorder, unspecified; F32.9 Major depressive disorder, single episode, unspecified; I10 Essential (primary) hypertension; E78.5 Hyperlipidemia, unspecified; G40.909 Epilepsy, unspecified, not intractable, without status epilepticus; I25.10 Atherosclerotic heart disease of native coronary artery without angina pectoris; E87.6 Hypokalemia; I25.2 Old myocardial infarction; Z86.73 Personal history of transient ischemic attack (TIA), and cerebral infarction without residual deficits; Z88.8 Allergy status to other drugs, medicaments and biological substances; Z91.010 Allergy to peanuts; Z79.4 Long term (current) use of insulin; Z79.899 Other long term (current) drug therapy; Z86.711 Personal history of pulmonary embolism; Z95.1 Presence of aortocoronary bypass graft
CPT/HCPCS: 36415; 36416; 71045; 80048; 80306; 80307; 81003; 82010; 82330; 82435; 82553; 82803; 84132; 84295; 84484; 84550; 85014; 85025; 87040; 93005; 96360; 96361; 96374; 96375; 96376; J1650; J1815; J1885; J2001; J2405

== ENCOUNTER 2018-02-18 20:03 | Inpatient (IN) | payer OTHER ==
[2018-02-18] MEDS ORDERED: Dextrose 50% Abboject 50 ML SYRINGE ONE ×2 (20:08→23:43)
[2018-02-18 22:33] LABS: #Basophils 0.1 thou/uL (0.0-0.2); #Eosinphils 0.2 thou/uL (0.0-0.7); #Lymphocytes 3.1 thou/uL (1.20-3.40); #Monocytes 0.6 thou/uL (0.11-0.59); #Neutrophils 3.7 thou/uL (1.40-6.50); %Basophils 0.9 % (0.0-1.0); %Eosinophils 2.7 % (0.0-10.0); %Lymphocytes 40.2 % (21.0-51.0); %Monocytes 8.4 % (0.0-10.0); %Neutrophils 47.8 % (42.0-75.0); Hemoglobin 15.2 g/dL (14.0-18.0); Mean Corpuscular HGB CONC 34.2 g/dL (32.0-36.0); Mean Corpuscular Hemoglobin 27.7 pg (27.0-31.0); Mean Platelet Volume 7.5 fL (7.4-10.4); Platelet Count 231 thou/uL (130-400); RBC Distribution Width 13.7 % (11.5-14.5); Red Blood Cell (RBC) Count 5.49 mill/uL (4.70-6.10); White Blood Cell (WBC) Count 7.7 thou/uL (4.8-10.8)
[2018-02-18 22:44] LABS: ALT (SGPT) 13 U/L (8-55); AST (SGOT) 13 U/L (5-34); Albumin 4.2 g/dL (3.5-5.0); Alkaline Phosphatase 102 U/L (40-150); Anion Gap 13 mmol/L (10-20); BUN (Urea Nitrogen) 15 mg/dL (8.4-25.7); Bilirubin, Total 0.4 mg/dL (0.2-1.2); Calc. Creatinine Clearance 0 mL/min (70-130); Calcium 9.5 mg/dL (7.8-10.44); Carbon Dioxide 29 mmol/L (22-29); Chloride 102 mmol/L (98-107); Estimated GFR-MDRD 59; Globulin 3.1 g/dL (2.4-3.5); Lipase Less than 4 U/L (8-78); Magnesium 2.2 mg/dL (1.6-2.6); Potassium 3.1 mmol/L (3.5-5.1); Protein, Total 7.3 g/dL (6.0-8.3); Sodium 141 mmol/L (136-145)
[2018-02-18 22:48] LABS: Glucose 50 mg/dL (70-105)
[2018-02-18] MEDS ORDERED: Potassium Chloride 20 MEQ TAB ONE (22:50)
[2018-02-19] MEDS ORDERED: Ondansetron HCl/PF 4 MG/2 ML Vial IVP PRN (02:07)
[2018-02-19] MEDS ORDERED: Acetaminophen 325 MG TAB PO PRN ×2 (02:07→02:59)
[2018-02-19] MEDS ORDERED: Ondansetron ODT 4 MG TAB SL PRN (02:07)
[2018-02-19] MEDS ORDERED: Dextrose 50% Abboject 50 ML SYRINGE ONE (02:21)
[2018-02-19 02:43] VITALS: BMI 28.1
[2018-02-19] MEDS ORDERED: Nitroglycerin 0.4 MG TAB (25 Tab Bottle) PO PRN (02:59)
[2018-02-19] MEDS ORDERED: Calcium Carbonate 500 MG ChewTAB PO PRN (02:59)
[2018-02-19] MEDS ORDERED: Dextrose 5% in Water 1,000 ML IV PRN (02:59)
[2018-02-19] MEDS ORDERED: Senokot 8.6 MG TAB PO PRN (02:59)
[2018-02-19] MEDS ORDERED: Dextrose 50% Abboject 50 ML SYRINGE SLOW IVP PRN (02:59)
[2018-02-19] MEDS ORDERED: cloNIDine 0.1 MG TAB PO PRN (03:03)
[2018-02-19] MEDS ORDERED: Dextrose 10% in Water 1,000 ML IV SCH (03:15)
[2018-02-19] MEDS ORDERED: Potassium Chloride 20 MEQ TAB PO SCH (03:15)
--- NOTE | 2018-02-19 03:31 | HP ---
DATE OF ADMISSION: 02/18/2018 The patient was seen and examined on 02/18/2018 CHIEF COMPLAINT: Altered mentation. HISTORY OF PRESENT ILLNESS: The patient is a 57-year-old -[place] male with coronary artery disease, status post CABG; diabetes mellitus, type 2; hypertension; and dyslipidemia; presented to [facility] emergency room with above complaints. The patient was found on the floor with altered mentation by a family member. For this reason, EMS was called. His blood sugar on ER arrival was 22. He receiv ed intramuscular glucagon after which his mentation started to improve. There was no fall or injurie s reported. He was then brought to the emergency room. In the emergency room, initial vital signs showed temperature 93.5 rectally with respirations of 16, pulse rate of 78 with blood pressure 198/96. EKG showed normal sinus rhythm with left ventricular hy pertrophy. His blood sugar on ER arrival was less than 35. He received 25 grams dextrose x2 and was started on D10 drip. Due to persistent hypoglycemia, it was decided to monitor him overnight. PAST MEDICAL HISTORY: 1. Diabetes mellitus, type 2. 2. Dyslipidemia. 3. Hypertension. 4. Coronary artery disease. 5. Hospitalization in December of this year for hypoglycemia and hypothermia (similar to this admission ). 6. History of pulmonary embolism. 7. Anxiety and depression. 8. History of cocaine abuse. 9. Schizophrenia. PAST SURGICAL HISTORY: 1. Coronary stent placement. 2. CABG. ALLERGIES: The patient is allergic to PREDNISONE, reaction unknown. CURRENT HOME MEDICATIONS: Clonidine 0.2 mg twice a day, Lasix as needed, Humalog sliding scale, Norc o as needed, Levemir 25 units b.i.d., Seroquel 200 mg at bedtime. SOCIAL HISTORY: The patient currently lives at home. No current use of alcohol or smoking. He has history of cocaine abuse. He currently lives at home with his family. He makes his own decision wit h the help of his family. FAMILY HISTORY: Negative for heart disease or malignancy. REVIEW OF SYSTEMS: The following complete review of systems was negative, unless otherwise mentioned in the HPI or below: Constitutional: Weight loss or gain, ability to conduct usual activities. Sk in: Rash, itching. Eyes: Double vision, pain. ENT/Mouth: Nose bleeding, neck stiffness, pain, te nderness. Cardiovascular: Palpitations, dyspnea on exertion, orthopnea. Respiratory: Shortness of breath, wheezing, cough, hemoptysis, fever or night sweats. Gastrointestinal: Poor appetite, abdom inal pain, heartburn, nausea, vomiting, constipation, or diarrhea. Genitourinary: Urgency, frequenc y, dysuria, nocturia. Musculoskeletal: Pain, swelling. Neurologic/Psychiatric: Anxiety, depressio n. Allergy/Immunologic: Skin rash, bleeding tendency. PHYSICAL EXAMINATION: VITAL SIGNS: As discussed above. GENERAL: A 57-year-old male, in no apparent distress. Mentation at baseline. Denies any double vis ion, blurring of vision, facial asymmetry. HEENT: Head atraumatic, normocephalic. Sclerae are anicteric. Moist mucous membrane, no oral lesio n. NECK: Supple, no JVD appreciated. No carotid bruit. LUNGS: Clear to auscultation bilaterally, no wheezing or rales. HEART: S1, S2 present. Regular rate and rhythm. No murmur, rubs, or gallops appreciated. ABDOMEN: Soft, nontender, bowel sounds present. EXTREMITIES: No edema or calf tenderness. NEUROLOGIC: Grossly nonfocal, moves all four extremities. PSYCHIATRIC: Alert, awake, oriented x3. SKIN: Warm and dry. LYMPH NODES: No palpable lymph nodes in the neck. LABORATORY FINDINGS: 1. Creatinine 1.48, potassium 3.1, sodium 141. 2. CBC showed WBC 7.7 with hemoglobin 15.2. 3. EKG by my review as discussed above. IMPRESSION: 1. Encephalopathy secondary to hypoglycemia (suspected due to insulin). 2. Diabetes mellitus, type 2, on insulin. 3. Dyslipidemia. 4. Hypothermia probably secondary to hypoglycemia. 5. Hypertension. 6. Coronary artery disease, status post coronary artery bypass graft and stent placement. 7. History of cocaine abuse. 8. Anxiety, depression, schizophrenia. 9. History of pulmonary embolism in the past. 10. Acute kidney injury on chronic kidney disease, stage 2. 11. Hypokalemia. 12. Prolonged QT. PLAN: The patient will be monitored on the medical floor. We will continue neuro checks with Accu-C heks every 2 hourly. We will continue D10 drip for now. We will replace electrolytes. We will rech queta labs in a.m. We will hold insulin for now. We will continue clonidine as needed. Due to prolon ged QT, we will hold Seroquel. Plan of care was discussed with the patient in detail. He stated understanding.
[2018-02-19 07:57] LABS: Anion Gap 18 mmol/L (10-20); BUN (Urea Nitrogen) 14 mg/dL (8.4-25.7); Calc. Creatinine Clearance 91 mL/min (70-130); Calcium 8.8 mg/dL (7.8-10.44); Carbon Dioxide 18 mmol/L (22-29); Chloride 103 mmol/L (98-107); Estimated GFR-MDRD 89; Glucose 223 mg/dL (70-105); Sodium 134 mmol/L (136-145)
[2018-02-19] MEDS: Aspirin 81 mg Enteric Coated Tablet PO SCH (08:52)
[2018-02-19] MEDS: Potassium Chloride 20 MEQ TAB PO SCH ×2 (08:52→17:15)
[2018-02-19] MEDS: Docusate 100 MG CAP PO SCH ×2 (08:52→20:48)
[2018-02-19] MEDS ORDERED: Aspirin 325 MG TAB PO SCH (09:00)
--- NOTE | 2018-02-19 12:56 | PDOC.PN ---
- Subjective Encounter Start Date: 02/19/18 Encounter Start Time: 08:45 -: old records requested/rev Patient seen and examined. No new complaints. No overnight events - Objective Resuscitation Status: Resuscitation Status FULL:Full Resuscitation MAR Reviewed: Yes Vital Signs & Weight: Vital Signs (12 hours) Temp Pulse Resp BP Pulse Ox 02/19/18 11:30 98.8 F 74 16 164/85 H 96 02/19/18 08:00 98.1 F 77 18 135/85 99 02/19/18 06:12 97 02/19/18 03:38 98.3 F 78 18 150/86 H 98 02/19/18 01:50 98.5 F 75 18 144/81 H 98 Weight Weight 180 lb I&O: 02/18/18 02/19/18 02/20/18 06:59 06:59 06:59 Intake Total 1500 Balance 1500 Result Diagrams: 02/18/18 20:21 02/19/18 07:31 Additional Labs: Accuchecks 02/19/18 02/19/18 02/19/18 12:04 10:47 08:52 POC Glucose 305 H 295 H 234 H 02/19/18 02/19/18 02/19/18 07:50 06:45 06:12 POC Glucose 202 H 97 56 L* 02/19/18 02/19/18 02/19/18 04:42 03:35 02:41 POC Glucose 122 H 105 108 02/19/18 02/19/18 02:20 00:59 POC Glucose 43 L* 81 Phys Exam - Physical Examination Constitutional: NAD HEENT: PERRLA, moist MMs, sclera anicteric Neck: no JVD, supple Respiratory: no wheezing, no rales, no rhonchi Cardiovascular: RRR, no significant murmur, no rub Gastrointestinal: soft, non-tender, no distention, positive bowel sounds Musculoskeletal: no edema, pulses present Neurological: non-focal, normal sensation, moves all 4 limbs Lymphatic: no nodes Psychiatric: normal affect, A&O x 3 Skin: no rash, normal turgor Dx/Plan (1) Acute metabolic encephalopathy due to hypoglycemia Code(s): G93.41 - METABOLIC ENCEPHALOPATHY; E16.2 - HYPOGLYCEMIA, UNSPECIFIED Status: Resolved (2) Acute worsening of stage 3 chronic kidney disease Code(s): N18.3 - CHRONIC KIDNEY DISEASE, STAGE 3 (MODERATE) Status: Resolved (3) Hypothermia Code(s): T68.XXXA - HYPOTHERMIA, INITIAL ENCOUNTER Status: Resolved (4) CAD (coronary artery disease) Code(s): I25.10 - ATHSCL HEART DISEASE OF [place] CORONARY ARTERY W/O ANG PCTRS Status: Chronic Qualifiers: (5) Cocaine abuse Code(s): F14.10 - COCAINE ABUSE, UNCOMPLICATED Status: Chronic (6) DM (diabetes mellitus), type 2, uncontrolled Code(s): E11.65 - TYPE 2 DIABETES MELLITUS WITH HYPERGLYCEMIA Status: Chronic Qualifiers: Comment: (7) Dyslipidemia Code(s): E78.5 - HYPERLIPIDEMIA, UNSPECIFIED Status: Chronic (8) HTN (hypertension) Code(s): I10 - ESSENTIAL (PRIMARY) HYPERTENSION Status: Chronic Qualifiers: (9) History of deep venous thrombosis or pulmonary embolus Code(s): [id number] - Status: Chronic Comment: (10) Neuropathy Code(s): G62.9 - POLYNEUROPATHY, UNSPECIFIED Status: Chronic (11) Schizophrenia Code(s): F20.9 - SCHIZOPHRENIA, UNSPECIFIED Status: Chronic Qualifiers: (12) Seizure disorder Code(s): G40.909 - EPILEPSY, UNSP, NOT INTRACTABLE, WITHOUT STATUS EPILEPTICUS Status: Chronic - Plan cont current plan of care * now will DC dextrose drip * will start insulin mild sliding scale * start selected home medication * medication reviewed as below * symptomatic treatment * will monitor for any recurrent hypoglycemia. Review of Systems - Review of Systems ENT: negative: Ear Pain, Ear Discharge, Nose Pain, Nose Discharge, Nose Congestion, Mouth Pain, Mouth Swelling, Throat Pain, Throat Swelling, Other Respiratory: negative: Cough, Dry, Shortness of Breath, Hemoptysis, SOB with Excertion, Pleuritic Pain, Sputum, Wheezing Cardiovascular: negative: chest pain, palpitations, orthopnea, paroxysmal nocturnal dyspnea, edema, light headedness, other Gastrointestinal: negative: Nausea, Vomiting, Abdominal Pain, Diarrhea, Constipation, Melena, Hematochezia, Other Genitourinary: negative: Dysuria, Frequency, Incontinence, Hematuria, Retention , Other Musculoskeletal: negative: Neck Pain, Shoulder Pain, Arm Pain, Back Pain, Hand Pain, Leg Pain, Foot Pain, Other Skin: negative: Rash, Lesions, Pawel, Bruising, Other - Medications/Allergies Allergies/Adverse Reactions: Allergies Allergy/AdvReac Type Severity Reaction Status Date / Time peanut Allergy Anaphylaxis Verified 12/31/17 04:33 prednisone Allergy Hives Verified 12/31/17 04:33 Medications: Current Medications Acetaminophen (Tylenol) 650 mg PO Q4H PRN PRN Reason: Headache/Fever or Pain Aspirin (Ecotrin) 81 mg PO DAILY [facility] Last Admin: 02/19/18 08:52 Dose: 81 mg Calcium Carbonate (Tums) 1,000 mg PO Q4H PRN PRN Reason: Heartburn or Indigestion Clonidine (Catapres) 0.1 mg PO Q4H PRN PRN Reason: Systolic BP > 180 Dextrose/Water (Dextrose 50%) 25 gm SLOW IVP PRN PRN PRN Reason: Hypoglycemia Docusate Sodium (Colace) 100 mg PO BID [facility] Last Admin: 02/19/18 08:52 Dose: Not Given Enoxaparin Sodium (Lovenox) 40 mg SC 2100 [facility] Glucagon (Glucagon) 1 mg IM PRN PRN PRN Reason: Hypoglycemia Dextrose/Water (Dextrose 10% In Water) 1,000 mls @ 75 mls/hr IV .[id number] [facility] Stop: 02/19/18 16:16 Last Admin: 02/19/18 03:35 Dose: 1,000 mls Dextrose/Water (D5w) 1,000 mls @ 0 mls/hr IV .Q0M PRN; As Directed PRN Reason: Hypoglycemia Nitroglycerin (Nitrostat) 0.4 mg PO Q5MIN PRN PRN Reason: Chest Pain Potassium Chloride (K-Dur) 20 meq PO BID-[facility] Stop: 02/19/18 17:01 Last Admin: 02/19/18 08:52 Dose: 20 meq Senna (Senokot) 2 tab PO HSPRN PRN PRN Reason: Constipation Sodium Chloride (Flush - Normal Saline) 10 ml IVF Q12HR [facility] Last Admin: 02/19/18 08:52 Dose: Not Given Sodium Chloride (Flush - Normal Saline) 10 ml IVF PRN PRN PRN Reason: Saline Flush
[2018-02-19] MEDS: HYDROcodone/Acetaminophen 10/325 mg Tablet PO PRN (13:22)
[2018-02-19] MEDS: HumaLOG 300 UNITS/3 ML VIAL SC PRN ×4 (13:23→20:50)
[2018-02-19] MEDS: cloNIDine 0.2 MG TAB PO SCH (20:48)
[2018-02-19] MEDS: Enoxaparin Sodium 40 MG/0.4 ML SYRINGE SC SCH (20:49)
[2018-02-20] MEDS: HumaLOG 300 UNITS/3 ML VIAL SC PRN ×5 (05:11→22:09)
[2018-02-20] MEDS: Furosemide 40 MG TAB PO SCH (08:03)
[2018-02-20] MEDS: Aspirin 81 mg Enteric Coated Tablet PO SCH (08:03)
[2018-02-20] MEDS: cloNIDine 0.2 MG TAB PO SCH ×2 (08:03→22:07)
[2018-02-20] MEDS: Docusate 100 MG CAP PO SCH ×2 (08:04→22:12)
[2018-02-20] MEDS: Insulin Detemir 100 UNITS/ML 10 UNITS in Pre-Filled Syringe 1 EACH SC SCH ×2 (11:12→22:08)
[2018-02-20] MEDS ORDERED: Artificial Tear Sol 15 ML BOT EA EYE PRN (11:51)
--- NOTE | 2018-02-20 11:52 | PDOC.PN ---
- Subjective Encounter Start Date: 02/20/18 Encounter Start Time: 08:40 Patient seen and examined. No new complaints. No overnight events - Objective Resuscitation Status: Resuscitation Status FULL:Full Resuscitation MAR Reviewed: Yes Vital Signs & Weight: Vital Signs (12 hours) Temp Pulse Resp BP BP Pulse Ox 02/20/18 08:03 158/72 H 02/20/18 08:00 98.3 F 75 16 158/72 H 95 02/20/18 04:00 98.0 F 79 18 162/82 H 96 Weight Weight 180 lb I&O: 02/19/18 02/20/18 02/21/18 06:59 06:59 06:59 Intake Total 1500 200 Balance 1500 200 Result Diagrams: 02/18/18 20:21 02/19/18 07:31 Additional Labs: Accuchecks 02/20/18 02/20/18 02/20/18 07:57 04:55 00:14 POC Glucose 351 H 289 H 174 H 02/19/18 02/19/18 02/19/18 20:20 16:06 14:52 POC Glucose 227 H 368 H 387 H 02/19/18 02/19/18 12:51 12:04 POC Glucose 378 H 305 H Phys Exam - Physical Examination Constitutional: NAD HEENT: PERRLA, moist MMs, sclera anicteric Neck: no JVD, supple Respiratory: no wheezing, no rales, no rhonchi Cardiovascular: RRR, no significant murmur, no rub Gastrointestinal: soft, non-tender, no distention, positive bowel sounds Musculoskeletal: no edema, pulses present Neurological: non-focal, normal sensation, moves all 4 limbs Lymphatic: no nodes Psychiatric: normal affect, A&O x 3 Skin: no rash, normal turgor Dx/Plan (1) Acute metabolic encephalopathy due to hypoglycemia Code(s): G93.41 - METABOLIC ENCEPHALOPATHY; E16.2 - HYPOGLYCEMIA, UNSPECIFIED Status: Resolved (2) Acute worsening of stage 3 chronic kidney disease Code(s): N18.3 - CHRONIC KIDNEY DISEASE, STAGE 3 (MODERATE) Status: Resolved (3) Hypothermia Code(s): T68.XXXA - HYPOTHERMIA, INITIAL ENCOUNTER Status: Resolved (4) CAD (coronary artery disease) Code(s): I25.10 - ATHSCL HEART DISEASE OF [place] CORONARY ARTERY W/O ANG PCTRS Status: Chronic Qualifiers: (5) Cocaine abuse Code(s): F14.10 - COCAINE ABUSE, UNCOMPLICATED Status: Chronic (6) DM (diabetes mellitus), type 2, uncontrolled Code(s): E11.65 - TYPE 2 DIABETES MELLITUS WITH HYPERGLYCEMIA Status: Chronic Qualifiers: Comment: (7) Dyslipidemia Code(s): E78.5 - HYPERLIPIDEMIA, UNSPECIFIED Status: Chronic (8) HTN (hypertension) Code(s): I10 - ESSENTIAL (PRIMARY) HYPERTENSION Status: Chronic Qualifiers: (9) History of deep venous thrombosis or pulmonary embolus Code(s): MRG8825 - Status: Chronic Comment: (10) Neuropathy Code(s): G62.9 - POLYNEUROPATHY, UNSPECIFIED Status: Chronic (11) Schizophrenia Code(s): F20.9 - SCHIZOPHRENIA, UNSPECIFIED Status: Chronic Qualifiers: (12) Seizure disorder Code(s): G40.909 - EPILEPSY, UNSP, NOT INTRACTABLE, WITHOUT STATUS EPILEPTICUS Status: Chronic - Plan cont current plan of care * now for high blood sugar will start levemir 10 unit sc bid * monitor today for any hypo/hyperglycemia. * artificial tear for his dry eye * medication reviewed as below * symptomatic treatment Review of Systems - Review of Systems Eyes: negative: Pain, Vision Change, Conjunctivae Inflammation, Eyelid Inflammation, Redness, Other ENT: negative: Ear Pain, Ear Discharge, Nose Pain, Nose Discharge, Nose Congestion, Mouth Pain, Mouth Swelling, Throat Pain, Throat Swelling, Other Respiratory: negative: Cough, Dry, Shortness of Breath, Hemoptysis, SOB with Excertion, Pleuritic Pain, Sputum, Wheezing Cardiovascular: negative: chest pain, palpitations, orthopnea, paroxysmal nocturnal dyspnea, edema, light headedness, other Gastrointestinal: negative: Nausea, Vomiting, Abdominal Pain, Diarrhea, Constipation, Melena, Hematochezia, Other Genitourinary: negative: Dysuria, Frequency, Incontinence, Hematuria, Retention , Other Musculoskeletal: negative: Neck Pain, Shoulder Pain, Arm Pain, Back Pain, Hand Pain, Leg Pain, Foot Pain, Other Skin: negative: Rash, Lesions, Pawel, Bruising, Other - Medications/Allergies Allergies/Adverse Reactions: Allergies Allergy/AdvReac Type Severity Reaction Status Date / Time peanut Allergy Anaphylaxis Verified 12/31/17 04:33 prednisone Allergy Hives Verified 12/31/17 04:33 Medications: Current Medications Acetaminophen (Tylenol) 650 mg PO Q4H PRN PRN Reason: Headache/Fever or Pain Hydrocodone Bitart/Acetaminophen ([place] 10/325) 1 tab PO Q6H PRN PRN Reason: Moderate to Severe Pain (6-10) Last Admin: 02/19/18 13:22 Dose: 1 tab Aspirin (Ecotrin) 81 mg PO DAILY [facility] Last Admin: 02/20/18 08:03 Dose: 81 mg Calcium Carbonate (Tums) 1,000 mg PO Q4H PRN PRN Reason: Heartburn or Indigestion Clonidine (Catapres) 0.1 mg PO Q4H PRN PRN Reason: Systolic BP > 180 Clonidine (Catapres) 0.2 mg PO BID [facility] Last Admin: 02/20/18 08:03 Dose: 0.2 mg Dextrose/Water (Dextrose 50%) 25 gm SLOW IVP PRN PRN PRN Reason: Hypoglycemia Docusate Sodium (Colace) 100 mg PO BID [facility] Last Admin: 02/20/18 08:04 Dose: Not Given Enoxaparin Sodium (Lovenox) 40 mg SC 2100 [facility] Last Admin: 02/19/18 20:49 Dose: Not Given Furosemide (Lasix) 40 mg PO DAILY [facility] Last Admin: 02/20/18 08:03 Dose: 40 mg Glucagon (Glucagon) 1 mg IM PRN PRN PRN Reason: Hypoglycemia Dextrose/Water (D5w) 1,000 mls @ 0 mls/hr IV .Q0M PRN; As Directed PRN Reason: Hypoglycemia Insulin Detemir 10 units/ (Miscellaneous Medication) 0.1 mls @ 0 mls/hr SC BID [facility] Last Admin: 02/20/18 11:12 Dose: 0.1 mls Insulin Human Lispro (Humalog) 0 units SC .MILD SLIDING SCALE PRN PRN Reason: Mild Correctional Scale Last Admin: 02/20/18 11:15 Dose: 5 unit Insulin Human Lispro (Humalog) 0 units SC .BEDTIME SLIDING SC PRN PRN Reason: Bedtime Correctional Scale Last Admin: 02/19/18 20:50 Dose: 2 units Nitroglycerin (Nitrostat) 0.4 mg PO Q5MIN PRN PRN Reason: Chest Pain Quetiapine Fumarate (Seroquel) 200 mg PO HS [facility] Last Admin: 02/19/18 20:49 Dose: 200 mg Senna (Senokot) 2 tab PO HSPRN PRN PRN Reason: Constipation Sodium Chloride (Flush - Normal Saline) 10 ml IVF Q12HR [facility] Last Admin: 02/20/18 08:04 Dose: 10 ml Sodium Chloride (Flush - Normal Saline) 10 ml IVF PRN PRN PRN Reason: Saline Flush
[2018-02-20] MEDS: HYDROcodone/Acetaminophen 10/325 mg Tablet PO PRN ×2 (15:20→22:07)
[2018-02-20] MEDS: Enoxaparin Sodium 40 MG/0.4 ML SYRINGE SC SCH (22:12)
[2018-02-21] MEDS ORDERED: Insulin Detemir 100 UNITS/ML 15 UNITS in Pre-Filled Syringe 1 EACH SC SCH ×2 (09:00→21:00)
[2018-02-21] MEDS: cloNIDine 0.2 MG TAB PO SCH ×2 (09:37→20:23)
[2018-02-21] MEDS: Docusate 100 MG CAP PO SCH ×2 (09:38→19:47)
[2018-02-21] MEDS: Furosemide 40 MG TAB PO SCH (09:38)
[2018-02-21] MEDS: Aspirin 81 mg Enteric Coated Tablet PO SCH (09:38)
--- NOTE | 2018-02-21 10:38 | PDOC.PN ---
- Subjective Encounter Start Date: 02/21/18 Encounter Start Time: 09:20 Patient seen and examined. No new complaints. No overnight events - Objective Resuscitation Status: Resuscitation Status FULL:Full Resuscitation MAR Reviewed: Yes Vital Signs & Weight: Vital Signs (12 hours) Temp Pulse Resp BP BP Pulse Ox 02/21/18 09:37 118/85 02/21/18 08:33 97.5 F L 72 16 118/85 97 Weight Weight 180 lb I&O: 02/20/18 02/21/18 02/22/18 06:59 06:59 06:59 Intake Total 200 2180 Balance 200 2180 Result Diagrams: 02/18/18 20:21 02/19/18 07:31 Additional Labs: Accuchecks 02/21/18 02/20/18 02/20/18 04:16 20:09 16:39 POC Glucose 165 H 408 H 373 H 02/20/18 11:17 POC Glucose 312 H Phys Exam - Physical Examination Constitutional: NAD HEENT: PERRLA, moist MMs, sclera anicteric Neck: no JVD, supple Respiratory: no wheezing, no rales, no rhonchi Cardiovascular: RRR, no significant murmur, no rub Gastrointestinal: soft, non-tender, no distention, positive bowel sounds Musculoskeletal: no edema, pulses present Neurological: non-focal, normal sensation Lymphatic: no nodes Psychiatric: normal affect Skin: no rash, normal turgor Dx/Plan (1) Acute metabolic encephalopathy due to hypoglycemia Code(s): G93.41 - METABOLIC ENCEPHALOPATHY; E16.2 - HYPOGLYCEMIA, UNSPECIFIED Status: Resolved (2) Acute worsening of stage 3 chronic kidney disease Code(s): N18.3 - CHRONIC KIDNEY DISEASE, STAGE 3 (MODERATE) Status: Resolved (3) Hypothermia Code(s): T68.XXXA - HYPOTHERMIA, INITIAL ENCOUNTER Status: Resolved (4) CAD (coronary artery disease) Code(s): I25.10 - ATHSCL HEART DISEASE OF [place] CORONARY ARTERY W/O ANG PCTRS Status: Chronic Qualifiers: (5) Cocaine abuse Code(s): F14.10 - COCAINE ABUSE, UNCOMPLICATED Status: Chronic (6) DM (diabetes mellitus), type 2, uncontrolled Code(s): E11.65 - TYPE 2 DIABETES MELLITUS WITH HYPERGLYCEMIA Status: Chronic Qualifiers: Comment: (7) Dyslipidemia Code(s): E78.5 - HYPERLIPIDEMIA, UNSPECIFIED Status: Chronic (8) HTN (hypertension) Code(s): I10 - ESSENTIAL (PRIMARY) HYPERTENSION Status: Chronic Qualifiers: (9) History of deep venous thrombosis or pulmonary embolus Code(s): [id number] - Status: Chronic Comment: (10) Neuropathy Code(s): G62.9 - POLYNEUROPATHY, UNSPECIFIED Status: Chronic (11) Schizophrenia Code(s): F20.9 - SCHIZOPHRENIA, UNSPECIFIED Status: Chronic Qualifiers: (12) Seizure disorder Code(s): G40.909 - EPILEPSY, UNSP, NOT INTRACTABLE, WITHOUT STATUS EPILEPTICUS Status: Chronic - Plan cont current plan of care * blood sugar are labile today, will increase levemir 15 unit sc bid * expecting discharge tomorrow * medication reviewed as below * symptomatic treatment. Review of Systems - Review of Systems ENT: negative: Ear Pain, Ear Discharge, Nose Pain, Nose Discharge, Nose Congestion, Mouth Pain, Mouth Swelling, Throat Pain, Throat Swelling, Other Respiratory: negative: Cough, Dry, Shortness of Breath, Hemoptysis, SOB with Excertion, Pleuritic Pain, Sputum, Wheezing Cardiovascular: negative: chest pain, palpitations, orthopnea, paroxysmal nocturnal dyspnea, edema, light headedness, other Gastrointestinal: negative: Nausea, Vomiting, Abdominal Pain, Diarrhea, Constipation, Melena, Hematochezia, Other Genitourinary: negative: Dysuria, Frequency, Incontinence, Hematuria, Retention , Other Musculoskeletal: negative: Neck Pain, Shoulder Pain, Arm Pain, Back Pain, Hand Pain, Leg Pain, Foot Pain, Other Skin: negative: Rash, Lesions, Pawel, Bruising, Other - Medications/Allergies Allergies/Adverse Reactions: Allergies Allergy/AdvReac Type Severity Reaction Status Date / Time peanut Allergy Anaphylaxis Verified 12/31/17 04:33 prednisone Allergy Hives Verified 12/31/17 04:33 Medications: Current Medications Acetaminophen (Tylenol) 650 mg PO Q4H PRN PRN Reason: Headache/Fever or Pain Hydrocodone Bitart/Acetaminophen ([place] 10/325) 1 tab PO Q6H PRN PRN Reason: Moderate to Severe Pain (6-10) Last Admin: 02/20/18 22:07 Dose: 1 tab Artificial Tears (Tears Renewed 15ml Bottle) 2 drop EA EYE QID PRN PRN Reason: Dry Eyes Aspirin (Ecotrin) 81 mg PO DAILY [facility] Last Admin: 02/21/18 09:38 Dose: 81 mg Calcium Carbonate (Tums) 1,000 mg PO Q4H PRN PRN Reason: Heartburn or Indigestion Clonidine (Catapres) 0.1 mg PO Q4H PRN PRN Reason: Systolic BP > 180 Clonidine (Catapres) 0.2 mg PO BID [facility] Last Admin: 02/21/18 09:37 Dose: 0.2 mg Dextrose/Water (Dextrose 50%) 25 gm SLOW IVP PRN PRN PRN Reason: Hypoglycemia Docusate Sodium (Colace) 100 mg PO BID [facility] Last Admin: 02/21/18 09:38 Dose: Not Given Enoxaparin Sodium (Lovenox) 40 mg SC 2100 [facility] Last Admin: 02/20/18 22:12 Dose: Not Given Furosemide (Lasix) 40 mg PO DAILY [facility] Last Admin: 02/21/18 09:38 Dose: 40 mg Glucagon (Glucagon) 1 mg IM PRN PRN PRN Reason: Hypoglycemia Dextrose/Water (D5w) 1,000 mls @ 0 mls/hr IV .Q0M PRN; As Directed PRN Reason: Hypoglycemia Insulin Detemir 15 units/ (Miscellaneous Medication) 0.15 mls @ 0 mls/hr SC [facility] Insulin Detemir 15 units/ (Miscellaneous Medication) 0.15 mls @ 0 mls/hr SC QAM [facility] Last Admin: 02/21/18 09:37 Dose: 0.15 mls Insulin Human Lispro (Humalog) 0 units SC .MILD SLIDING SCALE PRN PRN Reason: Mild Correctional Scale Last Admin: 02/20/18 17:18 Dose: 6 unit Insulin Human Lispro (Humalog) 0 units SC .BEDTIME SLIDING SC PRN PRN Reason: Bedtime Correctional Scale Last Admin: 02/20/18 22:09 Dose: 5 units Nitroglycerin (Nitrostat) 0.4 mg PO Q5MIN PRN PRN Reason: Chest Pain Quetiapine Fumarate (Seroquel) 200 mg PO HS [facility] Last Admin: 02/20/18 22:07 Dose: 200 mg Senna (Senokot) 2 tab PO HSPRN PRN PRN Reason: Constipation Sodium Chloride (Flush - Normal Saline) 10 ml IVF Q12HR [facility] Last Admin: 02/21/18 09:38 Dose: 10 ml Sodium Chloride (Flush - Normal Saline) 10 ml IVF PRN PRN PRN Reason: Saline Flush
[2018-02-21] MEDS: HumaLOG 300 UNITS/3 ML VIAL SC PRN ×2 (12:27→17:17)
[2018-02-21] MEDS: HYDROcodone/Acetaminophen 10/325 mg Tablet PO PRN (16:23)
[2018-02-21] MEDS: Enoxaparin Sodium 40 MG/0.4 ML SYRINGE SC SCH (19:47)
[2018-02-21] MEDS: Insulin Detemir 100 UNITS/ML 20 UNITS in Pre-Filled Syringe 1 EACH SC SCH (20:23)
[2018-02-22 04:47] LABS: #Eosinphils 0.2 thou/uL (0.0-0.7); #Lymphocytes 1.8 thou/uL (1.20-3.40); #Monocytes 0.5 thou/uL (0.11-0.59); #Neutrophils 2.2 thou/uL (1.40-6.50); %Basophils 0.4 % (0.0-1.0); %Eosinophils 4.6 % (0.0-10.0); %Lymphocytes 38.9 % (21.0-51.0); %Monocytes 9.4 % (0.0-10.0); %Neutrophils 46.7 % (42.0-75.0); Hemoglobin 14.4 g/dL (14.0-18.0); Mean Corpuscular HGB CONC 33.3 g/dL (32.0-36.0); Mean Corpuscular Hemoglobin 27.4 pg (27.0-31.0); Mean Corpuscular Volume 82.5 fl (80.0-94.0); Mean Platelet Volume 7.6 fL (7.4-10.4); Platelet Count 204 thou/uL (130-400); RBC Distribution Width 13.8 % (11.5-14.5); Red Blood Cell (RBC) Count 5.24 mill/uL (4.70-6.10); White Blood Cell (WBC) Count 4.7 thou/uL (4.8-10.8)
[2018-02-22 04:57] LABS: Anion Gap 12 mmol/L (10-20); BUN (Urea Nitrogen) 11 mg/dL (8.4-25.7); Calc. Creatinine Clearance 111 mL/min (70-130); Calcium 9.3 mg/dL (7.8-10.44); Carbon Dioxide 26 mmol/L (22-29); Chloride 102 mmol/L (98-107); Estimated GFR-MDRD Greater than 90; Glucose 124 mg/dL (70-105); Potassium 3.7 mmol/L (3.5-5.1); Sodium 136 mmol/L (136-145)
[2018-02-22] MEDS: Furosemide 40 MG TAB PO SCH (08:10)
[2018-02-22] MEDS: Aspirin 81 mg Enteric Coated Tablet PO SCH (08:10)
[2018-02-22] MEDS: cloNIDine 0.2 MG TAB PO SCH (08:10)
--- NOTE | 2018-02-22 08:10 | DIS ---
PRIMARY CARE PHYSICIAN: [facility] call admission. DATE OF ADMISSION: 02/18/2018 DATE OF DISCHARGE: 02/22/2018 DISCHARGE DISPOSITION: Home. PRIMARY DISCHARGE DIAGNOSES: 1. Acute metabolic encephalopathy due to hypoglycemia. 2. Acute on chronic kidney failure, baseline chronic kidney disease, stage 3. 3. Hypothermia on admission, resolved. SECONDARY DISCHARGE DIAGNOSES: Coronary artery disease; intermittent cocaine abuse; diabetes, type 2 , labile, controlled; dyslipidemia; history of deep venous thrombosis and pulmonary embolism; hyperte nsion; peripheral neuropathy; seizure disorder; schizophrenia. PRIMARY PROCEDURE/OPERATION: None. RADIOLOGICAL INVESTIGATION: None. SIGNIFICANT LABORATORY DATA: WBC 4.7, hemoglobin 14.4, platelet 204. Sodium 136, potassium 3.7, BUN 11, creatinine 0.85, calcium 9.3. DISCHARGE MEDICATIONS: Clonidine 0.2 mg p.o. b.i.d., Lasix 40 mg p.o. p.r.n., Humalog insulin as per sliding scale, Levemir insulin 25 units subcutaneous b.i.d., [place] 10 one tablet q.6 hourly p.r.n., Seroquel 200 mg p.o. at bedtime. The patient is using bacitracin and polymyxin ointment, to use on e ye p.r.n. basis. CONTRAINDICATIONS: None. CODE STATUS: FULL CODE. INPATIENT CONSULTANTS: None. ALLERGIES: PREDNISONE and PEANUT. DISCHARGE PLAN: Post hospital, the patient will follow up with primary care physician in 1 week. HOSPITAL COURSE: A 57-year-old male with above-mentioned medical problem, who was brought to emergen cy room for altered mental status with hypothermia. The patient was admitted by Dr. Ben Connor. Pl ease see his H&P for further detail. This patient has underlying schizophrenia and he has multiple a dmissions for hyper or hypo blood sugar. His blood sugar control is pretty much very labile. This t delvin, he was brought to ER for altered mental status secondary to hypotension. We gave him dextrose s olution and after 24-48 hours, his hypoglycemia resolved. Subsequently, we adjusted his insulin dose while in hospital and above-mentioned medication is given upon discharge. Overall, the patient is stable. The patient is seen and examined at bedside today. PHYSICAL EXAMINATION: VITAL SIGNS: Currently, temperature 98.0, pulse 69, respiratory rate 20, saturation 95%, blood press ure 124/63, weight 180 pounds. GENERAL: The patient is currently alert, awake, no acute distress. HEAD: Normocephalic, atraumatic. EYES: Pupils round, reactive to light. Extraocular muscle intact. ENT: Oropharynx within normal limits. Moist mucous membranes, no oral lesion, no pharyngeal erythem a, no exudate. NECK: Supple, no JVD, no thyromegaly, no carotid bruit. LUNGS: Clear without any rhonchi or rales. CARDIAC: S1, S2 regular without any murmur. ABDOMEN: Soft and benign without any tenderness. EXTREMITIES: No edema. NEUROLOGIC: Nonfocal examination. The patient is medically stable for discharge today.
[2018-02-22] MEDS: Docusate 100 MG CAP PO SCH (08:11)
[2018-02-22] MEDS: Insulin Detemir 100 UNITS/ML 20 UNITS in Pre-Filled Syringe 1 EACH SC SCH (08:11)
[2018-02-22 09:37] VITALS: TEMP 97.6
[2018-02-22] MEDS: HumaLOG 300 UNITS/3 ML VIAL SC PRN (10:55)
[2018-02-22 17:09] VITALS: BP 132/79
== END 2018-02-22 13:01 | disposition home or self-care (01) | DRG 637 ==
LOC: ERS 20:03 → T4-B 23:45
PROVIDERS: ADMIT Internal Medicine; ATTEND Internal Medicine
DX: E11.649 Type 2 diabetes mellitus with hypoglycemia without coma (principal); G93.41 Metabolic encephalopathy; T68.XXXA Hypothermia, initial encounter; I95.9 Hypotension, unspecified; N17.9 Acute kidney failure, unspecified; N18.3 Chronic kidney disease, stage 3 (moderate); F20.9 Schizophrenia, unspecified; E11.22 Type 2 diabetes mellitus with diabetic chronic kidney disease; G62.9 Polyneuropathy, unspecified; E87.1 Hypo-osmolality and hyponatremia; I25.10 Atherosclerotic heart disease of native coronary artery without angina pectoris; F14.10 Cocaine abuse, uncomplicated; Z95.1 Presence of aortocoronary bypass graft; E78.5 Hyperlipidemia, unspecified; Z86.718 Personal history of other venous thrombosis and embolism; Z86.711 Personal history of pulmonary embolism; G40.909 Epilepsy, unspecified, not intractable, without status epilepticus; Z88.8 Allergy status to other drugs, medicaments and biological substances; Z91.010 Allergy to peanuts; Z79.899 Other long term (current) drug therapy; Z79.4 Long term (current) use of insulin; Z79.2 Long term (current) use of antibiotics
CPT/HCPCS: 36415; 36416; 80048; 80053; 83690; 83735; 85025; 93005; 94760; 96361; 96374; 96376; A4216; J1650; J1815

== ENCOUNTER 2018-03-19 09:59 | Day surgery (SDC) | payer OTHER ==
[2018-03-18 12:46] VITALS: BMI 28.1
--- NOTE | 2018-03-19 06:42 | HP ---
DATE OF ADMISSION: 03/19/2018 HISTORY OF PRESENT ILLNESS: Mr. Korey Plata is a 57-year-old male with history of abdominal bloating and abdominal swelling, abdominal discomfort. This symptom have been chronic in nature. He has history of diabetes mellitus, hypertension, bipolar disorder. The symptoms were worse after this. He has had a constant belching, get some relief. Good appetite. After meals, he feels bloated and has had recurrent belching. He has abdominal pain. The pain is near the umbilicus, cramping in nature. The patient comes for an EGD because of abdominal pain. ALLERGIES: None. SOCIAL HISTORY: The patient does not smoke or drinks no alcohol. MEDICAL ILLNESSES: 1. Diabetes mellitus. 2. Hypertension. 3. Bipolar disorder. 4. Coronary artery disease, status post coronary artery bypass graft. 5. Allergic rhinitis. 6. Osteoarthritis. PHYSICAL EXAMINATION: GENERAL: Appears comfortable. VITAL SIGNS: Pulse is 70, blood pressure 140/70. HEENT: Conjunctivae clear. CARDIOVASCULAR: First and second heart sounds normal. LUNGS: Clear to auscultation. ABDOMEN: Soft to palpate. No organomegaly. Abdomen is tender over the umbilical area. There is no rebound or guarding. ADMITTING DIAGNOSES: Chronic dyspepsia, abdominal pain, nausea, and belching. PLAN: EGD. MTDD
[2018-03-19] MEDS ORDERED: Fentanyl 100 MCG/2 ML VIAL ONE (13:55)
[2018-03-19] MEDS ORDERED: Midazolam HCl 2 mg/2 ml Vial ONE (13:55)
[2018-03-19] MEDS ORDERED: PROPOFOL 160 ML ONE (13:57)
[2018-03-19] MEDS ORDERED: PROPOFOL 200 MG/20 ML VIAL ONE (15:16)
--- NOTE | 2018-03-22 13:19 | OP ---
DATE OF SURGERY: 03/19/2018 OPERATIVE PROCEDURE: Esophagogastroduodenoscopy with biopsy. PREOPERATIVE DIAGNOSES: Chronic dyspepsia, abdominal pain, nausea, and recurrent belching. POSTOPERATIVE DIAGNOSES: 1. Erosive esophagitis, multiple ulcerations and esophagitis, distal esophagus. 2. Hiatus hernia. 3. Antral gastritis. PROCEDURE IN DETAIL: The patient was placed on his left lateral position and was given sedation by Anesthesia Department. A Pentax video gastroscope under direct vision passed down the oropharynx, past the GE junction, into the stomach and subsequently into the descending duodenum. The upper two-third of the esophagus mucosa appeared normal. Over the distal esophagus, patient had multiple esophageal erosions, ulcer and esophagitis. Also, a small hiatus hernia. Retroflexion failed to show any pathology in the fundus or cardia. The gastric body, no pathology seen. There is patchy areas of mucosal edema and some gastric antrum. This was biopsied . The duodenal bulb, descending duodenum, no pathology seen. The stomach was decompressed and the scope was removed. DISCHARGE PLANNING: This is a 57-year-old male, who came for an EGD because of chronic dyspepsia, abdominal pain, nausea, and recurrent belching. EGD showed erosive esophagitis, gastritis. DISCHARGE RECOMMENDATION: 1. Omeprazole 40 once a day. 2. Await the gastric biopsy and decide whether he needs further treatment. The patient will come back to me in 2 weeks for a followup visit. [facility]
== END 2018-03-19 15:05 | disposition home or self-care (01) ==
LOC: SDC 09:59
PROVIDERS: ATTEND Internal Medicine Gastroenterology
PROC: 0DB68ZX Excision of Stomach, Via Natural or Artificial Opening Endoscopic, Diagnostic (ICD-10-PCS; principal; 2018-03-19)
DX: K22.10 Ulcer of esophagus without bleeding (principal); K44.9 Diaphragmatic hernia without obstruction or gangrene; E11.9 Type 2 diabetes mellitus without complications; I10 Essential (primary) hypertension; F31.9 Bipolar disorder, unspecified; I25.10 Atherosclerotic heart disease of native coronary artery without angina pectoris; M19.90 Unspecified osteoarthritis, unspecified site; J30.9 Allergic rhinitis, unspecified; Z79.4 Long term (current) use of insulin; Z79.899 Other long term (current) drug therapy; Z91.010 Allergy to peanuts; Z88.8 Allergy status to other drugs, medicaments and biological substances; Z95.1 Presence of aortocoronary bypass graft
CPT/HCPCS: 36416; 88305; 88312; 88313; J2250; J2704; J3010

== ENCOUNTER 2018-03-26 17:01 | Emergency (ER) | payer OTHER ==
[2018-03-26] MEDS ORDERED: Fluorescein Opthalmic Strip ONE (17:40)
[2018-03-26] MEDS ORDERED: Proparacaine 0.5% Opth 15 ML BOT ONE (17:40)
== END 2018-03-26 18:14 | disposition home or self-care (01) ==
LOC: ERS 17:01
DX: S05.02XA Injury of conjunctiva and corneal abrasion without foreign body, left eye, initial encounter (principal); I25.2 Old myocardial infarction; G89.29 Other chronic pain; E10.9 Type 1 diabetes mellitus without complications; F41.9 Anxiety disorder, unspecified; F20.9 Schizophrenia, unspecified; I10 Essential (primary) hypertension; Z86.73 Personal history of transient ischemic attack (TIA), and cerebral infarction without residual deficits; Y33.XXXA Other specified events, undetermined intent, initial encounter
CPT/HCPCS: 99283

== ENCOUNTER 2018-03-28 12:14 | Emergency (ER) | payer OTHER ==
[2018-03-28] MEDS ORDERED: Proparacaine 0.5% Opth 15 ML BOT ONE (12:32)
[2018-03-28] MEDS ORDERED: Fluorescein Opthalmic Strip ONE (12:32)
== END 2018-03-28 12:45 | disposition home or self-care (01) ==
LOC: ERS 12:14
DX: S05.02XA Injury of conjunctiva and corneal abrasion without foreign body, left eye, initial encounter (principal); E10.9 Type 1 diabetes mellitus without complications; F20.9 Schizophrenia, unspecified; F31.9 Bipolar disorder, unspecified; F41.9 Anxiety disorder, unspecified; I10 Essential (primary) hypertension; I25.2 Old myocardial infarction; Z86.73 Personal history of transient ischemic attack (TIA), and cerebral infarction without residual deficits; X58.XXXA Exposure to other specified factors, initial encounter
CPT/HCPCS: 99283

== ENCOUNTER 2018-04-07 13:31 | Emergency (ER) | payer OTHER ==
[2018-04-07 14:16] LABS: #Eosinphils 0.2 thou/uL (0.0-0.7); #Lymphocytes 1.6 thou/uL (1.20-3.40); #Monocytes 0.3 thou/uL (0.11-0.59); #Neutrophils 3.7 thou/uL (1.40-6.50); %Basophils 0.2 % (0.0-1.0); %Eosinophils 2.7 % (0.0-10.0); %Lymphocytes 27.8 % (21.0-51.0); %Neutrophils 64.3 % (42.0-75.0); Hemoglobin 13.8 g/dL (14.0-18.0); Mean Corpuscular HGB CONC 32.8 g/dL (32.0-36.0); Mean Corpuscular Hemoglobin 27.1 pg (27.0-31.0); Mean Corpuscular Volume 82.4 fl (80.0-94.0); Platelet Count 242 thou/uL (130-400); RBC Distribution Width 14.3 % (11.5-14.5); Red Blood Cell (RBC) Count 5.12 mill/uL (4.70-6.10); White Blood Cell (WBC) Count 5.7 thou/uL (4.8-10.8)
[2018-04-07 14:49] LABS: ALT (SGPT) 12 U/L (8-55); AST (SGOT) 9 U/L (5-34); Alkaline Phosphatase 113 U/L (40-150); Anion Gap 13 mmol/L (10-20); BUN (Urea Nitrogen) 9 mg/dL (8.4-25.7); Bilirubin, Total 0.3 mg/dL (0.2-1.2); Calc. Creatinine Clearance 0 mL/min (70-130); Calcium 9.4 mg/dL (7.8-10.44); Carbon Dioxide 22 mmol/L (22-29); Chloride 108 mmol/L (98-107); Estimated GFR-MDRD 77; Globulin 2.9 g/dL (2.4-3.5); Glucose 238 mg/dL (70-105); Potassium 3.1 mmol/L (3.5-5.1); Protein, Total 6.9 g/dL (6.0-8.3); Sodium 140 mmol/L (136-145)
== END 2018-04-07 15:02 | disposition home or self-care (01) ==
LOC: ERS 13:31
DX: E10.65 Type 1 diabetes mellitus with hyperglycemia (principal); I10 Essential (primary) hypertension; F31.9 Bipolar disorder, unspecified; F41.9 Anxiety disorder, unspecified; F20.9 Schizophrenia, unspecified; I25.2 Old myocardial infarction; Z86.73 Personal history of transient ischemic attack (TIA), and cerebral infarction without residual deficits; Z79.4 Long term (current) use of insulin; Z79.899 Other long term (current) drug therapy
CPT/HCPCS: 36415; 36416; 80053; 82010; 85025

== ENCOUNTER 2018-04-07 18:25 | Emergency (ER) | payer OTHER | END 2018-04-07 19:30 | disposition home or self-care (01) | LOC: ERS 18:25 | DX: E10.649 Type 1 diabetes mellitus with hypoglycemia without coma (principal); I25.2 Old myocardial infarction; F41.9 Anxiety disorder, unspecified; F32.9 Major depressive disorder, single episode, unspecified; F20.9 Schizophrenia, unspecified; Z86.73 Personal history of transient ischemic attack (TIA), and cerebral infarction without residual deficits; Z79.899 Other long term (current) drug therapy | CPT/HCPCS: 36415; 36416; 80053; 82010; 85025; 99285 ==

== ENCOUNTER 2018-04-09 18:17 | Emergency (ER) | payer OTHER ==
[2018-04-09 18:55] LABS: Bilirubin Negative (Negative); Blood, Urine Negative (Negative); Clarity CLEAR (Clear); Glucose, Urine (Dipstick) >=1000 mg/dL (Negative); Leukocyte Negative (Negative); Nitrite Negative (Negative); Protein, Urine (Dipstick) Negative (Neg-Trace); Specific Gravity, Urine 1.019 (1.002-1.036)
[2018-04-09 19:05] LABS: Amphetamine Not Detected (NotDetected); Barbiturates Screen Not Detected (NotDetected); Benzodiazepine Screen Not Detected (NotDetected); Cocaine Metabolite Screen Not Detected (NotDetected); Medtox Control Line Valid? VALID (VALID); Medtox Reader # READER 1; Methadone Not Detected (NotDetected); Methamphetamine Not Detected (NotDetected); Opiate Screen Not Detected (NotDetected); Oxycodone Screen Not Detected (NotDetected); Phencyclidine (PCP) Not Detected (NotDetected); THC/Cannabinoid Screen Not Detected (NotDetected); Tricyclic Screen Detected (NotDetected)
[2018-04-09 19:16] LABS: #Eosinphils 0.3 thou/uL (0.0-0.7); #Lymphocytes 1.4 thou/uL (1.20-3.40); #Monocytes 0.5 thou/uL (0.11-0.59); #Neutrophils 3.7 thou/uL (1.40-6.50); %Basophils 0.5 % (0.0-1.0); %Eosinophils 4.8 % (0.0-10.0); %Monocytes 8.5 % (0.0-10.0); %Neutrophils 62.2 % (42.0-75.0); Hemoglobin 13.6 g/dL (14.0-18.0); Mean Corpuscular Hemoglobin 27.2 pg (27.0-31.0); Mean Corpuscular Volume 82.4 fl (80.0-94.0); Mean Platelet Volume 7.4 fL (7.4-10.4); Platelet Count 224 thou/uL (130-400); RBC Distribution Width 14.3 % (11.5-14.5); White Blood Cell (WBC) Count 5.9 thou/uL (4.8-10.8)
[2018-04-09 19:39] LABS: ALT (SGPT) 13 U/L (8-55); AST (SGOT) 11 U/L (5-34); Albumin 3.9 g/dL (3.5-5.0); Alkaline Phosphatase 119 U/L (40-150); Anion Gap 17 mmol/L (10-20); BUN (Urea Nitrogen) 15 mg/dL (8.4-25.7); Bilirubin, Total 0.3 mg/dL (0.2-1.2); CK (CPK) 65 U/L (30-200); Calc. Creatinine Clearance 0 mL/min (70-130); Calcium 8.6 mg/dL (7.8-10.44); Carbon Dioxide 20 mmol/L (22-29); Chloride 100 mmol/L (98-107); Estimated GFR-MDRD 55; Globulin 2.8 g/dL (2.4-3.5); Potassium 3.8 mmol/L (3.5-5.1); Protein, Total 6.7 g/dL (6.0-8.3); Sodium 133 mmol/L (136-145)
[2018-04-09 19:41] LABS: Glucose 668 mg/dL (70-105)
--- NOTE | 2018-04-09 20:02 | CT ---
CT BRAIN WITHOUT CONTRAST 04/09/18 HISTORY: Seizure. COMPARISON: CT brain 08/19/17. FINDINGS: New from the comparison examination is a hypodense focus within the left jamil. This appears to be gli otic and not likely acute. No loss of normal ambrosio/white matter differentiation. No hemorrhage. Paranasal sinuses and mastoids are clear. IMPRESSION: New from the 08/19/17 examination, hypodense focus within the left jamil. Although does not appear to be acute. POS: [facility]
[2018-04-09 20:22] LABS: Base Excess-Venous -2.4 mmol/L (0 (+/- 2.5)); Bicarbonate (HCO3v) 22.2 mmol/L (1.0-85.0); CO2 Tension (PvCO2) 37.3 mmHg (41.0-51.0); Calcium, Ionized 1.14 mmol/L (1.12-1.32); Hemoglobin - Calc 14.9 g/dL (12.0-18.0); O2 Tension (PvO2) 68.5 mmHg (35.0-45.0); Potassium 3.9 mmol/L (3.4-4.7); T. Carbon Dioxide 23.4 mmol/L (1.0-85.0); pH (Venous) 7.383 (7.35-7.45); vO2 Saturation-calc 93.2 % (94-98)
[2018-04-09] MEDS ORDERED: Insulin Regular 300 UNITS/3 ML VIAL ONE (20:30)
[2018-04-09] MEDS ORDERED: Acetaminophen 500 MG TAB ONE (22:28)
== END 2018-04-10 00:53 | disposition home or self-care (01) ==
LOC: ERS 18:17
DX: E10.65 Type 1 diabetes mellitus with hyperglycemia (principal); R56.9 Unspecified convulsions; I10 Essential (primary) hypertension; I25.2 Old myocardial infarction; F31.9 Bipolar disorder, unspecified; F41.9 Anxiety disorder, unspecified; F20.9 Schizophrenia, unspecified; Z86.73 Personal history of transient ischemic attack (TIA), and cerebral infarction without residual deficits; Z79.899 Other long term (current) drug therapy
CPT/HCPCS: 36415; 36416; 70450; 80053; 80306; 81003; 82330; 82550; 82803; 84146; 85025; 96361; 96374; 96376; J1815

== ENCOUNTER 2018-05-02 18:14 | Inpatient (IN) | payer OTHER ==
[2018-05-02 19:22] LABS: #Eosinphils 0.1 thou/uL (0.0-0.7); #Lymphocytes 1.3 thou/uL (1.20-3.40); #Monocytes 0.7 thou/uL (0.11-0.59); #Neutrophils 5.3 thou/uL (1.40-6.50); %Basophils 0.4 % (0.0-1.0); %Eosinophils 1.1 % (0.0-10.0); %Lymphocytes 17.9 % (21.0-51.0); %Monocytes 9.3 % (0.0-10.0); %Neutrophils 71.3 % (42.0-75.0); Hemoglobin 15.4 g/dL (14.0-18.0); Mean Corpuscular HGB CONC 33.3 g/dL (32.0-36.0); Mean Corpuscular Hemoglobin 27.4 pg (27.0-31.0); Mean Corpuscular Volume 82.3 fL (78.0-98.0); Mean Platelet Volume 7.3 fL (7.4-10.4); Platelet Count 274 thou/uL (130-400); Red Blood Cell (RBC) Count 5.62 mill/uL (4.70-6.10); White Blood Cell (WBC) Count 7.4 thou/uL (4.8-10.8)
[2018-05-02 19:36] LABS: ALT (SGPT) 19 U/L (8-55); AST (SGOT) 15 U/L (5-34); Albumin 4.4 g/dL (3.5-5.0); Alkaline Phosphatase 116 U/L (40-150); Anion Gap 15 mmol/L (10-20); BUN (Urea Nitrogen) 20 mg/dL (8.4-25.7); Bilirubin, Total 0.6 mg/dL (0.2-1.2); CK (CPK) 101 U/L (30-200); Calc. Creatinine Clearance 0 mL/min (70-130); Calcium 9.8 mg/dL (7.8-10.44); Carbon Dioxide 27 mmol/L (22-29); Chloride 99 mmol/L (98-107); Estimated GFR-MDRD 50; Globulin 3.4 g/dL (2.4-3.5); Glucose 253 mg/dL (70-105); Potassium 3.7 mmol/L (3.5-5.1); Protein, Total 7.8 g/dL (6.0-8.3); Sodium 137 mmol/L (136-145)
[2018-05-02 19:40] LABS: CKMB 2.5 ng/mL (0-6.6); Troponin I 0.144 ng/mL (< 0.028)
--- NOTE | 2018-05-02 21:22 | RAD ---
CHEST ONE VIEW: HISTORY: Fall. Post traumatic pain. COMPARISON: 12/31/2017 FINDINGS: There are sternotomy wires. Normal cardiac silhouette. When taking the portable technique into cons ideration, the pulmonary vessels and hilum are normal. The costophrenic angles are clear. No consol idation or masses. There is no pneumothorax on this supine projection. There is a nondisplaced frac ture involving the posterior right 7th rib and a minimally displaced fracture involving the posterior right 8th rib. IMPRESSION: Right 7th and 8th rib fractures. POS: [facility]
--- NOTE | 2018-05-02 21:51 | RAD ---
THREE VIEWS RIGHT SHOULDER: HISTORY: Fall. Pain. COMPARISON: 10/23/2017 FINDINGS: The scapula appears to be intact on the scapular Y view. Limited evaluation of the glenohumeral join t space. Chronic degenerative changes are noted. No fracture or dislocation. Fracture involving the posterior 7th and 8th ribs is noted. IMPRESSION: Right rib fractures. POS: [facility]
--- NOTE | 2018-05-02 22:14 | CT ---
CT CHEST WITH CONTRAST: TECHNIQUE: Multiple axial tomograms obtained through the chest with IV enhancement. INDICATIONS: Injury. Fall with injury to chest and right shoulder. FINDINGS: The lung ortega are well aerated and clear. There is some mild atelectasis in the posterior lung bas es. No pneumothorax or effusion. The mediastinum is unremarkable. Images through the upper abdomen appear unremarkable. The visualized liver, spleen, and pancreas are unremarkable. The kidneys are partially imaged and appear unremarkable. Review of the osseous structures reveal numerous right-sided rib fractures. There are nondisplaced f ractures involving the posterolateral right 6th, 7th, 8th, 9th, and 10th ribs. There is no evidence of pneumothorax or effusion. The right scapula and proximal humerus appear intact as visualized on t his exam. The thoracic vertebrae appear intact. The sternum appears intact. IMPRESSION: 1. Multiple right-sided rib fractures, as enumerated above. 2. Mild right basilar atelectasis. No pneumothorax or effusion. POS: [facility]
--- NOTE | 2018-05-02 22:26 | CT ---
NONCONTRAST HEAD CT: HISTORY: Fall. Posttraumatic pain. COMPARISON: 04/09/2018 TECHNIQUE: A noncontrast head CT is performed from the skull base to the skull vertex. FINDINGS: No parenchymal hemorrhage. No extraaxial hematoma. No midline shift. The basilar cisterns are joseph nt. Brain volume is age appropriate. Cortical ambrosio white matter differentiation is preserved. The ventricles and sulci are patent and symmetric. Periventricular white matter hypodensities due to chr onic small vessel ischemic change. Stable hyperattenuation of the anterior falx, likely representing calcification. Stable soft tissue prominence of the posterior left parietal scalp. The calvarium is intact. Adequa te aeration of the sinuses and mastoid air cells. Cavernous carotid atherosclerosis is noted. Stabl e hypodensities in the central aspect of the jamil. IMPRESSION: 1. No significant interval change. 2. No intracranial posttraumatic sequela. POS: [facility]
[2018-05-02] MEDS ORDERED: Aspirin 325 MG TAB ONE (22:28)
--- NOTE | 2018-05-02 22:33 | CT ---
CT CERVICAL SPINE WITHOUT CONTRAST: HISTORY: Trauma. Fall. Pain. COMPARISON: 08/17/2016 TECHNIQUE: A CT of the cervical spine is performed without contrast. Reformatted images are submitted for inter pretation. FINDINGS: No craniocervical dissociation. There is appropriate alignment of the lateral masses of C1 and C2. Intact odontoid process. Varying degrees of central canal stenosis and foraminal narrowing on the basis of degenerative change . Evaluation is limited by technique. Soft tissue neck structures and upper mediastinum are unremarkable. Stable pleural-based opacity in the right lung apex, unchanged from the examination from 2016. Opacity currently measures 0.8 cm. P ossible hyperdense nodularity emanating from the lower pole of the left thyroid lobe, incompletely ev aluated. Cervical spine vertebral body height is maintained. There is no evidence of fracture. No malalignme nt on the sagittal reformatted images. Stable degenerative changes with loss of disk space height an d osteophyte formation. IMPRESSION: 1. No cervical spine fracture. 2. Hyperdensity involving the left thyroid lobe. Nonemergent thyroid ultrasound. POS: [facility]
[2018-05-02 23:59] LABS: CKMB 2.3 ng/mL (0-6.6); Troponin I 0.087 ng/mL (< 0.028)
[2018-05-03 00:58] LABS: Troponin I 0.093 ng/mL (< 0.028)
[2018-05-03 01:27] LABS: Cardiac Risk 3.6 (Less than 4.5)
[2018-05-03] MEDS ORDERED: Ondansetron ODT 4 MG TAB SL PRN (02:01)
[2018-05-03] MEDS ORDERED: Sodium Chloride 0.9% 1,000 ML IV SCH (02:01)
[2018-05-03] MEDS ORDERED: Acetaminophen 325 MG TAB PO PRN (02:01)
[2018-05-03] MEDS ORDERED: Ondansetron HCl/PF 4 MG/2 ML Vial IVP PRN (02:01)
[2018-05-03 03:48] LABS: Troponin I 0.069 ng/mL (< 0.028)
[2018-05-03] MEDS ORDERED: Aspirin 325 MG TAB PO SCH (09:00)
[2018-05-03] MEDS ORDERED: Nitroglycerin 0.4 MG TAB (25 Tab Bottle) PO PRN (11:09)
[2018-05-03] MEDS ORDERED: Dextrose 5% in Water 1,000 ML IV PRN (11:11)
[2018-05-03] MEDS ORDERED: Dextrose 50% Abboject 50 ML SYRINGE SLOW IVP PRN (11:11)
[2018-05-03] MEDS ORDERED: HumaLOG 300 UNITS/3 ML VIAL SC PRN (11:11)
[2018-05-03] MEDS ORDERED: Insulin Glargine 30 UNITS in Pre-Filled Syringe 1 EACH SC SCH ×2 (11:15→11:30)
[2018-05-03] MEDS: HYDROcodone/Acetaminophen 10/325 mg Tablet PO PRN ×2 (11:44→20:40)
[2018-05-03 12:17] LABS: Troponin I 0.053 ng/mL (< 0.028)
[2018-05-03] MEDS ORDERED: Carvedilol 3.125 MG TAB PO SCH (12:30)
[2018-05-03] MEDS ORDERED: cloNIDine 0.2 MG TAB PO SCH (12:30)
[2018-05-03] MEDS: busPIRone HCl 5 MG TAB PO SCH ×2 (15:25→20:39)
--- NOTE | 2018-05-03 15:48 | HP ---
DATE OF ADMISSION: 05/03/2018 CHIEF COMPLAINT: Chest pain following a fall. HISTORY OF PRESENT ILLNESS: This is a 57-year-old -[place] male, looks older than his stated age. He has known history of coronary artery disease with history of CABG, cardiac bypass done many years ago. The patient was in his usual state of health, fixing his couch, he fell backwards after feeling dizzy and hitting his right shoulder following which he had severe pain in his chest. The chadwick mae presented to the ER. He had an evidence of seventh and eighth rib fractures with no evidence o f any pneumothorax or bleeding. Patient had elevated troponins, but he did complain of feeling weak for the past few days before this event. He was feeling of being lethargic and weak, but denies havi ng any chest pains. He had a recent followup with his primary word processing specialist and was scheduled for a n uclear stress test on 05/17/2018. Patient denies having any nausea, no vomiting, no diarrhea, no con stipation. PAST MEDICAL HISTORY: 1. Coronary artery disease with CABG. 2. Hypertension. 3. Hyperlipidemia. 4. Type 2 diabetes mellitus. 5. History of osteoarthritis. 6. Bipolar disorder. PAST SURGICAL HISTORY: History of CABG. SOCIAL HISTORY: The patient is a known smoker. Smokes 1-1/2 pack a day. No history of alcohol, no history of illicit drug use. FAMILY HISTORY: No significant family history of coronary artery disease. Family history has been r eviewed. ALLERGIES: None. HOME MEDICATIONS: 1. He takes Humalog at bedtime. 2. Insulin 30 units subcu b.i.d. 3. Lasix 40 mg p.o. b.i.d. 4. Atorvastatin 40 mg p.o. at bedtime. 5. Buspirone 15 mg p.o. t.i.d. 6. Clonidine 0.2 mg p.o. b.i.d. 7. Gabapentin 300 mg p.o. at bedtime. 8. Hydrocodone 9. Omeprazole. 10. Quetiapine 200 mg p.o. daily. 11. Sertraline 100 mg p.o. daily. REVIEW OF SYSTEMS: All 12 systems are reviewed with the patient thoroughly and found to be negative at this time. Systems reviewed are HEENT, CVS, FA[employer] LEAD, respiratory, GI, , musculoskeletal, skin, neur ologic and psychiatric. The following complete review of systems was negative, unless otherwise mentioned in the HPI or below: Constitutional: Weight loss or gain, sense of well-being, ability to conduct usual activities, exerc ise tolerance. Skin/Breast: Rash, itching, changes in hair growth or loss, nail changes, breast lumps, tenderness, swelling, nipple discharge. Eyes: Vision, double vision, tearing, blind spots, pain. ENT/Mouth: Headaches (location, time of onset, duration, precipitating factors), vertigo, lightheadedness, injury. Vision, double vision, tearing, blind spots, pain, nose b leeding, colds, obstruction, discharge, dental difficulties, gingival bleeding, dentures, neck stiffn ess, pain, tenderness, masses in thyroid or other areas Cardiovascular: Precordial pain, substernal distress, palpitations, syncope, dyspnea on exertion, or thopnea, nocturnal paroxysmal dyspnea, edema, cyanosis, hypertension, heart murmurs, varicosities, ph lebitis, claudication. Respiratory: Pain, shortness of breath, wheezing, stridor, cough, hemoptysis, fever or night sweats Gastrointestinal: Poor appetite, dysphagia, indigestion, abdominal pain, heartburn, eructation, naus ea, vomiting, hematemesis, jaundice, constipation, or diarrhea, abnormal stools (martin-colored, tarry, bloody, greasy, foul smelling), flatulence, hemorrhoids, recent changes in bowel habits. Genitourinary: Urgency, frequency, dysuria, nocturia, hematuria, polyuria, oliguria, unusual (or tasha nge in) color of urine, stones, hesitancy, change in size of stream, dribbling, acute retention or in continence, libido, potency. Musculoskeletal: Pain, swelling, redness or heat of muscles or joints, limitation, of motion, muscular weakness, atrophy, cramps. Neurologic/Psychiatric: Convulsions, paralyses, tremor, incoordination, parasthesias, difficulties w ith memory of speech, sensory or motor disturbances, or muscular coordination (ataxia, tremor), emoti onal problems, anxiety, depression, previous psychiatric care, unusual perceptions, hallucinations. Allergy/Immunologic: Skin rash, anemia, bleeding tendency, polydipsia, polyuria, intolerance to heat or cold. PHYSICAL EXAMINATION: VITAL SIGNS: Blood pressure is 189/78, heart rate is 92, respiratory rate 24, saturation 94%. GENERAL: The patient is moderately built and moderately nourished, does not appears to be in acute d istress at this time. He is alert and oriented x3. HEENT: Atraumatic, normocephalic. PERRLA. Extraocular movement intact. CARDIOVASCULAR: S1 and S2 normal. No murmurs, rubs or gallops. LUNGS: Bilateral air entry was equal. No wheezing, no crackles. ABDOMEN: Soft, nontender, no guarding, no rebound tenderness. Bowel sounds normal. MUSCULOSKELETAL: No calf tenderness. No pedal edema. No joint tenderness. No joint swelling. SKIN: No cyanosis, no erythema, no rash, no pallor. CENTRAL NERVOUS SYSTEM: Cranial nerve examination II through XII intact. No focal deficits were not ed. PSYCHIATRIC: No signs of suicidal ideation. No signs of estella. No signs of depression. LABORATORY DATA: WBC 7.0, hemoglobin 15.4, platelets 274. Sodium is 137, potassium is 3.7, BUN is 2 0, creatinine is 1.73. Blood sugar is 403. Troponins 0.093. IMAGING DATA: Chest x-ray showing an evidence of 7th and 8th rib fractures on the right side. ASSESSMENT: 1. [id number] elevation myocardial infarction. 2. Uncontrolled hypertension. 3. Right rib fractures, seventh and eighth. 4. Uncontrolled type 2 diabetes mellitus. 5. History of coronary artery disease. 6. Hyperlipidemia. 7. History of bipolar disorder. PLAN: 1. Plan is to closely monitor. This patient is high risk for coronary artery disease. We will cons ult Cardiology at this time. We will start the patient on Lovenox 1 mg/kg b.i.d. and continue the pa tient on statins and continue the patient on beta jess. Continue on aspirin. 2. Patient is poorly controlled. We will optimize his blood pressure medications right now because of the pain. His pressures are high. We will continue with his home medications and do hydralazine 10 mg q.6 hours p.r.n. if blood pressure is more than 160. 3. Patient has poorly controlled type 2 diabetes mellitus. We will restart the patient's home medic ations and optimize his Levemir to keep the blood sugars between 140-180. 4. Acute on chronic kidney disease. We will closely monitor. We will start the patient on IV fluid s at this time at 100 mL an hour. We will closely monitor. We will get a 2D echo to look for any ev idence of wall motion abnormality. 5. DVT prophylaxis, Lovenox. I spent 75 minutes on this patient.
--- NOTE | 2018-05-03 17:55 | CON ---
DATE OF CONSULTATION: 05/03/2018 REASON FOR CONSULTATION: Syncope. HISTORY OF PRESENT ILLNESS: Mr. Plata is a pleasant 57-year-old -[place] gentleman who com es to the hospital after a syncopal spell. He was at home leading down to fix his couch and when he stood up, he got lightheaded, lost consciousness, went to the floor and broke several ribs on the rig ht side. He was brought in for further evaluation, but he does have a history of ischemic cardiomyop athy with a normal EF. He had bypass surgery in 2016. At that point, he was being taken care of by Dr. Gonzalez, who since has left this practice and went to [facility]. He would not take his insura nce in [facility], so he had to find another physician and he has been seeing a airplane first officer in [place]. He is scheduled to do a stress test in 2 weeks down in [place]. He tells he denies any jenae st pain, tightness, pressure, except for the pain after he fell down and broke his ribs. He states h e has not been feeling well. He has been doing with a lot of low blood pressures. He states that ct s blood pressure usually goes too high and then he gets blood pressure medications and then it comes to becomes too low. PAST MEDICAL HISTORY: 1. Coronary artery disease, status post bypass x3. 2. Hypertension. 3. Hyperlipidemia. 4. Type 2 diabetes. 5. Osteoarthritis. 6. Bipolar disorder. PAST SURGICAL HISTORY: CABG x3 in 2016. SOCIAL HISTORY: Smokes a pack and a half a day. No alcohol or drug use. FAMILY HISTORY: Noncontributory. OUTPATIENT MEDICATIONS: 1. Humalog. 2. Lasix 40 mg b.i.d. 3. Atorvastatin 40 mg at bedtime. 4. BuSpar 15 mg daily. 5. Clonidine 0.2 mg b.i.d. 6. Gabapentin 300 mg at bedtime. 7. Hydrocodone. 8. Omeprazole. 9. Quetiapine. 10. Sertraline. ALLERGIES: No known drug allergies. REVIEW OF SYSTEMS: A 12-point review of systems was done and is all negative unless stated in the ct story of present illness. PHYSICAL EXAMINATION: VITAL SIGNS: Temperature 97.6, pulse 75, respiratory rate 18, satting 96% on room air, blood pressur e 126/91; however, it has been as high as 190s/90s. GENERAL: Awake, alert, oriented x3, in pain when he moves from his rib fractures. HEENT: Normocephalic, atraumatic. NECK: Supple. LUNGS: Lungs are clear. CARDIOVASCULAR: S1, S2, no S3, S4, no murmurs. ABDOMEN: Soft without bowel sounds. EXTREMITIES: No edema. SKIN: Warm and dry. LABORATORY WORK: Reviewed. CBC is unremarkable. Chemistry is unremarkable. Troponins are in the i ndeterminate range at 0.14, 0.08, 0.09, 0.06. BNP was 81, creatinine at 1.73. However, it is a cate le higher than what has been before. EKG was reviewed, nonspecific ST changes. Chest CT, cervical spine CT and brain CT were reviewed. ASSESSMENT AND PLAN: 1. Syncope: Most likely related to him standing up too quickly and be having orthostatic hypotensio n. Would only checked his blood pressure standing up, would not treat his blood pressure if his bloo d pressure standing up is normal. More than likely the high blood pressure that we found in the hosp ital may be related to pain and he is in severe pain from his rib fractures whenever he moves too muc h. 2. Coronary artery disease: Unlikely that this is an acute coronary syndrome. His troponin has not had a typical upper rise and fall of an MA. His syncopal spell was after he stood up quickly from t he leaning down position. Thank you for letting us participate in the care of your patient. We will follow. DISPOSITION: Further recommendations results of echocardiogram.
[2018-05-03] MEDS ORDERED: HumaLOG 300 UNITS/3 ML VIAL SC SCH (19:45)
[2018-05-03] MEDS: Carvedilol 3.125 MG TAB PO SCH (20:39)
[2018-05-03] MEDS: cloNIDine 0.2 MG TAB PO SCH (20:39)
[2018-05-03] MEDS: Atorvastatin Calcium 40 MG TAB PO SCH (20:39)
[2018-05-03] MEDS: Gabapentin 300 MG CAP PO SCH (20:40)
[2018-05-03] MEDS: Insulin Glargine 30 UNITS in Pre-Filled Syringe 1 EACH SC SCH (20:40)
[2018-05-04] MEDS: HYDROcodone/Acetaminophen 10/325 mg Tablet PO PRN ×3 (02:21→21:09)
[2018-05-04 05:33] LABS: Cardiac Risk 3.9 (Less than 4.5)
[2018-05-04] MEDS ORDERED: Insulin Glargine 30 UNITS in Pre-Filled Syringe 1 EACH SC SCH ×2 (09:00→11:11)
[2018-05-04] MEDS: busPIRone HCl 5 MG TAB PO SCH ×3 (09:06→21:07)
[2018-05-04] MEDS: cloNIDine 0.2 MG TAB PO SCH ×2 (09:07→21:08)
[2018-05-04] MEDS: Carvedilol 3.125 MG TAB PO SCH ×2 (09:07→21:08)
[2018-05-04] MEDS: Insulin Glargine 30 UNITS in Pre-Filled Syringe 1 EACH SC SCH ×2 (09:08→21:08)
[2018-05-04] MEDS: HumaLOG 300 UNITS/3 ML VIAL SC PRN ×2 (11:04→18:09)
[2018-05-04] MEDS ORDERED: Sodium Chloride 0.9% 1,000 ML IV SCH (12:15)
--- NOTE | 2018-05-04 12:15 | PDOC.CTH ---
Cardiology Progress Note - Subjective No new issues. Continues to have right rib pain from fractures. His echo was done yesterday and it shows normal LV function. - Objective Vital Signs Temp Pulse Resp BP BP Pulse Ox 05/04/18 10:59 98.4 F 76 16 125/76 92 L 05/04/18 09:03 97.8 F 75 16 133/69 94 L 05/04/18 03:52 98.2 F 79 17 121/66 93 L Weight 175 lb 9.6 oz 05/03/18 05/04/18 05/05/18 06:59 06:59 06:59 Intake Total 226 840 Output Total 0 825 Balance 226 15 - Physical Examination General/Neuro: alert & oriented x3, NAD Neck: no JVD present Lungs: CTA, unlabored respirations Heart: RRR Abdomen: NT/ND Extremities: other: (no edema.) - Labs Result Diagrams: 05/02/18 18:42 05/02/18 18:42 Troponin/CKMB CK-MB (CK-2) 2.3 ng/mL (0-6.6) 05/02/18 23:27 Troponin I 0.053 ng/mL (< 0.028) H 05/03/18 11:44 - Assessment/Plan 1. Syncope 2. CAD, stable 3. Rib fractures 4. S/P CABG PLAN: - Will give IV fluids as most likely his syncope was from being volume down and his creatinine would support this. He has a normal LV function so he can handle the volume. - No evidence of ACS. - Likely episode was orthostatic. - Would only check his BP standing up and base medication modifications based on STANDING BP only. - Will follow.
--- NOTE | 2018-05-04 13:56 | PDOC.PN ---
- Subjective Encounter Start Date: 05/04/18 Encounter Start Time: 10:00 Patient is sen today, alert and oriented, he is admoitted with ACS, syncope and Fall with trauma to chest, he feels very weak. Will continue to Monitor and Hydrate him today. - Objective MAR Reviewed: Yes Vital Signs & Weight: Vital Signs (12 hours) Temp Pulse Resp BP BP Pulse Ox 05/04/18 10:59 98.4 F 76 16 125/76 92 L 05/04/18 09:03 97.8 F 75 16 133/69 94 L 05/04/18 03:52 98.2 F 79 17 121/66 93 L Weight Weight 175 lb 9.6 oz I&O: 05/03/18 05/04/18 05/05/18 06:59 06:59 06:59 Intake Total 226 840 Output Total 0 825 Balance 226 15 Result Diagrams: 05/02/18 18:42 05/02/18 18:42 Additional Labs: Accuchecks 05/04/18 05/04/18 05/03/18 11:03 06:21 23:34 POC Glucose 225 H 185 H 308 H 05/03/18 05/03/18 21:03 19:26 POC Glucose 471 H 482 H Radiology Reviewed by me: Yes Phys Exam - Physical Examination HEENT: PERRLA, moist MMs Neck: no nodes, no JVD Respiratory: no wheezing, no rales Cardiovascular: RRR, no significant murmur Gastrointestinal: soft, non-tender Musculoskeletal: no edema, pulses present Lymphatic: no nodes Psychiatric: normal affect, A&O x 3 Dx/Plan (1) NSTEMI (non-ST elevated myocardial infarction) Code(s): I21.4 - NON-ST ELEVATION (NSTEMI) MYOCARDIAL INFARCTION Status: Acute Comment: Will continue with Cardiology recommedations, Echo ws normal. No stress test now, Will foillow with primary cardiology. (2) JC (acute kidney injury) Code(s): N17.9 - ACUTE KIDNEY FAILURE, UNSPECIFIED Status: Acute Comment: Will continue with IV hydration, will reduce his home dose of lasix at dischagre tomorrow. he was dehydrated and orthostatic and fell. (3) Syncope and collapse Code(s): R55 - SYNCOPE AND COLLAPSE Status: Acute Comment: PT/OT evalaute for safe dischagre home. (4) CAD (coronary artery disease) Code(s): I25.10 - ATHSCL HEART DISEASE OF [place] CORONARY ARTERY W/O ANG PCTRS Status: Chronic Qualifiers: Comment: No evidenceof CAD per cardioogy. Will continue with BB/ STatin/ Aspirin. (5) DM (diabetes mellitus), type 2, uncontrolled Code(s): E11.65 - TYPE 2 DIABETES MELLITUS WITH HYPERGLYCEMIA Status: Chronic Qualifiers: Comment: (6) Dyslipidemia Code(s): E78.5 - HYPERLIPIDEMIA, UNSPECIFIED Status: Chronic Comment: Well controlled, Continue home medsicastions. (7) HTN (hypertension) Code(s): I10 - ESSENTIAL (PRIMARY) HYPERTENSION Status: Chronic Qualifiers: Comment: Will continue with home meds, Will hold lasix now. (8) History of deep venous thrombosis or pulmonary embolus Code(s): CPS1485 - Status: Chronic Comment: - Plan cont current plan of care, PT/OT, nursing home social worker, respiratory therapy, incentive spirometry, DVT proph w/lovenox * . Review of Systems - Review of Systems Constitutional: weakness Eyes: negative: Pain, Vision Change, Conjunctivae Inflammation, Eyelid Inflammation, Redness, Other ENT: negative: Ear Pain, Ear Discharge, Nose Pain, Nose Discharge, Nose Congestion, Mouth Pain, Mouth Swelling, Throat Pain, Throat Swelling, Other Respiratory: SOB with Excertion. negative: Cough, Dry, Shortness of Breath, Hemoptysis, Pleuritic Pain, Sputum, Wheezing Cardiovascular: chest pain Gastrointestinal: negative: Nausea, Vomiting, Abdominal Pain, Diarrhea, Constipation, Melena, Hematochezia, Other Genitourinary: negative: Dysuria, Frequency, Incontinence, Hematuria, Retention , Other Musculoskeletal: negative: Neck Pain, Shoulder Pain, Arm Pain, Back Pain, Hand Pain, Leg Pain, Foot Pain, Other - Medications/Allergies Allergies/Adverse Reactions: Allergies Allergy/AdvReac Type Severity Reaction Status Date / Time peanut Allergy Anaphylaxis Verified 05/03/18 02:37 prednisone Allergy Hives Verified 05/03/18 02:37 steroids Allergy Uncoded 03/18/18 12:47 Medications: Current Medications Hydrocodone Bitart/Acetaminophen ([place] 10/325) 1 tab PO Q6H PRN PRN Reason: Pain Last Admin: 05/04/18 09:09 Dose: 1 tab Atorvastatin Calcium (Lipitor) 40 mg PO [facility] Last Admin: 05/03/18 20:39 Dose: 40 mg Buspirone HCl (Buspar) 15 mg PO TID [facility] Last Admin: 05/04/18 09:06 Dose: 15 mg Carvedilol (Coreg) 3.125 mg PO BID [facility] Last Admin: 05/04/18 09:07 Dose: 3.125 mg Clonidine (Catapres) 0.2 mg PO BID [facility] Last Admin: 05/04/18 09:07 Dose: 0.2 mg Dextrose/Water (Dextrose 50%) 25 gm SLOW IVP PRN PRN PRN Reason: Hypoglycemia Gabapentin (Neurontin) 300 mg PO [facility] Last Admin: 05/03/18 20:40 Dose: 300 mg Glucagon (Glucagon) 1 mg IM PRN PRN PRN Reason: Hypoglycemia Dextrose/Water (D5w) 1,000 mls @ 0 mls/hr IV .Q0M PRN; As Directed PRN Reason: Hypoglycemia Insulin Glargine 30 units/ (Miscellaneous Medication) 0.3 mls @ 0 mls/hr SC BID [facility] PRN Reason: Per Protocol Last Admin: 05/04/18 09:08 Dose: 0.3 mls Sodium Chloride (Normal Saline 0.9%) 1,000 mls @ 100 mls/hr IV .Q10H [facility] Stop: 05/04/18 17:15 Last Admin: 05/04/18 12:37 Dose: 1,000 mls Insulin Human Lispro (Humalog) 0 units SC .MODERATE SLIDING SC PRN PRN Reason: Moderate Correctional Scale Last Admin: 05/04/18 11:04 Dose: 4 units Insulin Human Lispro (Humalog) 0 units SC .BEDTIME SLIDING SC PRN PRN Reason: Bedtime Correctional Scale Nitroglycerin (Nitrostat) 0.4 mg PO Q5MIN PRN PRN Reason: Chest Pain Pantoprazole Sodium (Protonix) 40 mg PO DAILY [facility] Last Admin: 05/04/18 09:08 Dose: 40 mg Quetiapine Fumarate (Seroquel) 400 mg PO [facility] Last Admin: 05/03/18 20:40 Dose: 400 mg Sertraline HCl (Zoloft) 100 mg PO DAILY [facility] Last Admin: 05/04/18 09:09 Dose: 100 mg Sodium Chloride (Flush - Normal Saline) 10 ml IVF Q12HR [facility] Last Admin: 05/04/18 09:11 Dose: 10 ml Sodium Chloride (Flush - Normal Saline) 10 ml IVF PRN PRN PRN Reason: Saline Flush
[2018-05-04 14:40] LABS: Anion Gap 17 mmol/L (10-20); BUN (Urea Nitrogen) 13 mg/dL (8.4-25.7); Calc. Creatinine Clearance 101 mL/min (70-130); Calcium 9.5 mg/dL (7.8-10.44); Carbon Dioxide 21 mmol/L (22-29); Chloride 101 mmol/L (98-107); Estimated GFR-MDRD Greater than 90; Glucose 234 mg/dL (70-105); Potassium 4.5 mmol/L (3.5-5.1); Sodium 134 mmol/L (136-145)
[2018-05-04] MEDS: Atorvastatin Calcium 40 MG TAB PO SCH (21:07)
[2018-05-04] MEDS: Gabapentin 300 MG CAP PO SCH (21:08)
[2018-05-05 06:31] LABS: Anion Gap 11 mmol/L (10-20); BUN (Urea Nitrogen) 9 mg/dL (8.4-25.7); Calc. Creatinine Clearance 126 mL/min (70-130); Calcium 9.3 mg/dL (7.8-10.44); Carbon Dioxide 26 mmol/L (22-29); Chloride 103 mmol/L (98-107); Estimated GFR-MDRD Greater than 90; Glucose 71 mg/dL (70-105); Potassium 3.3 mmol/L (3.5-5.1); Sodium 137 mmol/L (136-145)
[2018-05-05] MEDS: Carvedilol 3.125 MG TAB PO SCH ×2 (09:16→20:18)
[2018-05-05] MEDS: Insulin Glargine 30 UNITS in Pre-Filled Syringe 1 EACH SC SCH ×2 (09:16→20:24)
[2018-05-05] MEDS: busPIRone HCl 5 MG TAB PO SCH ×3 (09:16→20:18)
[2018-05-05] MEDS: cloNIDine 0.2 MG TAB PO SCH ×2 (09:16→20:18)
[2018-05-05] MEDS ORDERED: Mag-Al Plus 1200 MG/1200 MG/120 MG/30 ML UDCUP PO PRN (11:05)
[2018-05-05] MEDS: Calcium Carbonate 500 MG ChewTAB PO PRN (11:35)
[2018-05-05] MEDS: HYDROcodone/Acetaminophen 10/325 mg Tablet PO PRN ×2 (11:43→20:20)
--- NOTE | 2018-05-05 12:33 | PDOC.PN ---
- Subjective Encounter Start Date: 05/05/18 Encounter Start Time: 08:45 Subjective: no sob, right chest wall pain is better but still hurts -: has not amb so far -: normally amb well at home - Objective MAR Reviewed: Yes Vital Signs & Weight: Vital Signs (12 hours) Temp Pulse Pulse Pulse Resp BP BP 05/05/18 11:41 98.4 F 72 22 H 05/05/18 11:35 72 77 176/83 H 123/91 H 05/05/18 07:51 97.2 F L 73 16 05/05/18 04:15 97.5 F L 74 13 BP Pulse Ox 05/05/18 11:41 176/85 H 93 L 05/05/18 11:35 05/05/18 07:51 131/66 93 L 05/05/18 04:15 137/71 93 L Weight Weight 178 lb 4.8 oz I&O: 05/04/18 05/05/18 05/06/18 06:59 06:59 06:59 Intake Total 840 1953 Output Total 825 1225 Balance 15 728 Result Diagrams: 05/02/18 18:42 05/05/18 05:07 Additional Labs: Accuchecks 05/05/18 05/05/18 05/04/18 10:43 05:29 21:08 POC Glucose 112 H 72 145 H 05/04/18 17:01 POC Glucose 278 H Phys Exam - Physical Examination HEENT: PERRLA, moist MMs Neck: no JVD, supple Respiratory: no wheezing, no rales right lower chest wall pain Cardiovascular: RRR, no significant murmur Gastrointestinal: soft, non-tender, positive bowel sounds Musculoskeletal: no edema, pulses present Neurological: non-focal, moves all 4 limbs Psychiatric: normal affect, A&O x 3 Dx/Plan (1) Syncope and collapse Code(s): R55 - SYNCOPE AND COLLAPSE Status: Acute (2) Rib fracture Code(s): S22.39XA - FRACTURE OF ONE RIB, UNSP SIDE, INIT FOR CLOS FX Status: Acute Qualifiers: Encounter type: subsequent encounter Fracture type: closed Laterality: right (3) DM type 2 (diabetes mellitus, type 2) Status: Chronic Qualifiers: Diabetes mellitus long term care social worker insulin use: with group home use Diabetes mellitus complication status: with unspecified complications Qualified Code(s) : E11.8 - Type 2 diabetes mellitus with unspecified complications; Z79.4 - buttermaker helper (current) use of insulin; Z79.4 - long-term (current) use of insulin; Z79.4 - buttermaker helper (current) use of insulin; Z79.4 - buttermaker helper (current) use of insulin (4) CAD (coronary artery disease) Code(s): I25.10 - ATHSCL HEART DISEASE OF [place] CORONARY ARTERY W/O ANG PCTRS Status: Chronic Qualifiers: [place] vs. transplanted heart: [place] heart Associated angina: without angina Comment: No evidenceof CAD per cardioogy. Will continue with BB/ STatin/ Aspirin. (5) Dyslipidemia Code(s): E78.5 - HYPERLIPIDEMIA, UNSPECIFIED Status: Chronic (6) HTN (hypertension) Code(s): I10 - ESSENTIAL (PRIMARY) HYPERTENSION Status: Chronic Qualifiers: (7) Schizophrenia Code(s): F20.9 - SCHIZOPHRENIA, UNSPECIFIED Status: Chronic Qualifiers: Schizophrenia type: unspecified (8) Seizure disorder Code(s): G40.909 - EPILEPSY, UNSP, NOT INTRACTABLE, WITHOUT STATUS EPILEPTICUS Status: Chronic - Plan hemostable, tx to med floor -: PT/OT to mobilize as tolerated, rehab eval -: i.spirometry, lidocaine patch -: continue psych meds as before -: coreg, clonidine, lipitor, lantus * . Review of Systems - Medications/Allergies Allergies/Adverse Reactions: Allergies Allergy/AdvReac Type Severity Reaction Status Date / Time peanut Allergy Anaphylaxis Verified 05/03/18 02:37 prednisone Allergy Hives Verified 05/03/18 02:37 steroids Allergy Uncoded 03/18/18 12:47 Medications: Current Medications Hydrocodone Bitart/Acetaminophen ([place] 10/325) 1 tab PO Q6H PRN PRN Reason: Pain Last Admin: 05/05/18 11:43 Dose: 1 tab Al Hydroxide/Mg Hydroxide (Maalox Plus) 30 ml PO Q6H PRN PRN Reason: Heartburn or Indigestion Atorvastatin Calcium (Lipitor) 40 mg PO HS [facility] Last Admin: 05/04/18 21:07 Dose: 40 mg Buspirone HCl (Buspar) 15 mg PO TID [facility] Last Admin: 05/05/18 09:16 Dose: 15 mg Calcium Carbonate (Tums) 1,000 mg PO Q4H PRN PRN Reason: Heartburn or Indigestion Last Admin: 05/05/18 11:35 Dose: 1,000 mg Carvedilol (Coreg) 3.125 mg PO BID [facility] Last Admin: 05/05/18 09:16 Dose: 3.125 mg Clonidine (Catapres) 0.2 mg PO BID [facility] Last Admin: 05/05/18 09:16 Dose: 0.2 mg Dextrose/Water (Dextrose 50%) 25 gm SLOW IVP PRN PRN PRN Reason: Hypoglycemia Gabapentin (Neurontin) 300 mg PO HS [facility] Last Admin: 05/04/18 21:08 Dose: 300 mg Glucagon (Glucagon) 1 mg IM PRN PRN PRN Reason: Hypoglycemia Dextrose/Water (D5w) 1,000 mls @ 0 mls/hr IV .Q0M PRN; As Directed PRN Reason: Hypoglycemia Insulin Glargine 30 units/ (Miscellaneous Medication) 0.3 mls @ 0 mls/hr SC BID [facility] PRN Reason: Per Protocol Last Admin: 05/05/18 09:16 Dose: 0.3 mls Insulin Human Lispro (Humalog) 0 units SC .MODERATE SLIDING SC PRN PRN Reason: Moderate Correctional Scale Last Admin: 05/04/18 18:09 Dose: 6 units Insulin Human Lispro (Humalog) 0 units SC .BEDTIME SLIDING SC PRN PRN Reason: Bedtime Correctional Scale Lidocaine (Lidoderm 5% Patch) 1 patch TD DAILY [facility] Miscellaneous Medication (Lidocaine Patch Removal) 1 each TOP 2100 [facility] Nitroglycerin (Nitrostat) 0.4 mg PO Q5MIN PRN PRN Reason: Chest Pain Pantoprazole Sodium (Protonix) 40 mg PO DAILY [facility] Last Admin: 05/05/18 09:16 Dose: 40 mg Quetiapine Fumarate (Seroquel) 400 mg PO HS [facility] Last Admin: 05/04/18 21:09 Dose: 400 mg Sertraline HCl (Zoloft) 100 mg PO DAILY [facility] Last Admin: 05/05/18 09:16 Dose: 100 mg Sodium Chloride (Flush - Normal Saline) 10 ml IVF Q12HR [facility] Last Admin: 05/05/18 09:17 Dose: 10 ml Sodium Chloride (Flush - Normal Saline) 10 ml IVF PRN PRN PRN Reason: Saline Flush
[2018-05-05] MEDS ORDERED: Lidocaine 5% Patch TD SCH (15:45)
[2018-05-05] MEDS: HumaLOG 300 UNITS/3 ML VIAL SC PRN (15:48)
[2018-05-05] MEDS: Atorvastatin Calcium 40 MG TAB PO SCH (20:18)
[2018-05-05] MEDS: Gabapentin 300 MG CAP PO SCH (20:18)
[2018-05-05] MEDS: Lidocaine Patch Removal 1 EACH TOP SCH (21:40)
--- NOTE | 2018-05-06 08:17 | PQF ---
CLINICAL DOCUMENTATION IMPROVEMENT CLARIFICATION FORM: ICD-10 Updated PLEASE DO AN ADDENDUM TO THE PROGRESS NOTE WITH ANY DOCUMENTATION UPDATES OR ADDITIONS AND CARRY THROUGH TO DC SUMMARY. THANK YOU. DATE: 05/06 ATTN: DR. Prisca LANDON Please exercise your independent, professional judgment in responding to the clarification form. Clinical indicators are provided on the bottom of this form for your review. Please check appropriate box(s): Conflicting documentation was noted in the Medical Record, please clarify if patient is being treated/monitored for: [ ] NSTEMI [ ] Syncope d/t orthostatic hypotension [ x ] Other diagnosis _demand ischemia due to fall and rib fractures [ ] Unable to determine For continuity of documentation, please document condition throughout progress notes and discharge summary. Thank You. CLINICAL INDICATORS - SIGNS / SYMPTOMS/ LABS TROP I: 0.144, 0.87, 0.093, 0.069, 0.053 (05/02- 05/03) PHYSICIAN H&P 05/03: ASSESSMENT: 1) NSTEMI PHYSICIAN PN 05/04: DX/PLAN: NSTEMI; 3) SYNCOPE & COLLAPSE PHYSICIAN PN 05/05: DX/PLAN: 1) SYNCOPE & COLLAPSE CARDIOLOGY CON 05/03: LAB: TROPONINS ARE IN THE INDETERMINATE RANGE AT 0.14, 0.08, 0.09, 0.06; ASSESSMENT: 1) SYNCOPE: MOST LIKELY R/T HAVING ORTHOSTATIC HYPOTENSION; 2) CAD: UNLIKELY THAT THIS IS AN ACS. HIS TROPONIN HAS NOT HAD A TYPICAL UPPER RISE & FALL OF AN AK. CARDIOLOGY PN 05/04: ASSESSMENT/PLAN: 1) SYNCOPE; PLAN: NO EVIDENCE OF ACS RISK FACTORS: CAD (STABLE PER CARDIOLOGY) ISCHEMIC WINE MERCHANT TREATMENT: CARDIOLOGY CONSULT IVF (NS 05/03 - 3) THANK YOU! Trena (This form is maintained as a part of the permanent medical record) 2014 [employer]. All Rights Reserved Trena Gracia RN, BSN [email or web address] Office: [phone] [facility]
[2018-05-06] MEDS: Carvedilol 3.125 MG TAB PO SCH ×2 (09:36→20:09)
[2018-05-06] MEDS: cloNIDine 0.2 MG TAB PO SCH ×2 (09:36→20:09)
[2018-05-06] MEDS: Lidocaine 5% Patch TD SCH (09:36)
[2018-05-06] MEDS: Insulin Glargine 30 UNITS in Pre-Filled Syringe 1 EACH SC SCH (09:37)
[2018-05-06] MEDS: HYDROcodone/Acetaminophen 10/325 mg Tablet PO PRN ×3 (09:48→21:39)
--- NOTE | 2018-05-06 11:19 | PDOC.CTH ---
Cardiology Progress Note - Subjective He is doing well. He continues to have rib pain from his fractures. No more syncope, presyncope. - Objective Vital Signs Temp Pulse Resp BP BP Pulse Ox 05/06/18 09:36 188/81 H 05/06/18 08:00 97.9 F 74 18 188/81 H 96 05/06/18 04:00 97.6 F 76 17 129/60 98 05/05/18 23:54 98.3 F 78 19 148/70 H 97 Weight 184 lb 1.6 oz 05/05/18 05/06/18 05/07/18 06:59 06:59 06:59 Intake Total 1952 Output Total 1225 1025 Balance 728 -1025 - Physical Examination General/Neuro: alert & oriented x3, NAD Neck: no JVD present Lungs: CTA, unlabored respirations Heart: RRR Abdomen: NT/ND ( ) Extremities: + edema B (Trace) - Labs Result Diagrams: 05/02/18 18:42 05/05/18 05:07 Troponin/CKMB CK-MB (CK-2) 2.3 ng/mL (0-6.6) 05/02/18 23:27 Troponin I 0.053 ng/mL (< 0.028) H 05/03/18 11:44 - Assessment/Plan 1. Syncope 2. CAD, stable 3. Rib fractures 4. S/P CABG PLAN: - Continue current meds. - Normal LV function. - Replace K. - Would only increase anti hypertensives if STANDING BP is also high. - Placement.
--- NOTE | 2018-05-06 11:35 | PDOC.PN ---
- Subjective Encounter Start Date: 05/06/18 Encounter Start Time: 09:15 Subjective: pain is slightly better over right chest -: no sob, is using i.spirometer -: amb in room - Objective MAR Reviewed: Yes Vital Signs & Weight: Vital Signs (12 hours) Temp Pulse Resp BP BP Pulse Ox 05/06/18 09:36 188/81 H 05/06/18 08:00 97.9 F 74 18 188/81 H 96 05/06/18 04:00 97.6 F 76 17 129/60 98 05/05/18 23:54 98.3 F 78 19 148/70 H 97 Weight Weight 184 lb 1.6 oz I&O: 05/05/18 05/06/18 05/07/18 06:59 06:59 06:59 Intake Total 1953 Output Total 1225 1025 Balance 728 -1025 Result Diagrams: 05/02/18 18:42 05/05/18 05:07 Additional Labs: Accuchecks 05/06/18 05/06/18 05/06/18 11:23 06:37 06:17 POC Glucose 150 H 178 H 44 L* 05/06/18 05/06/18 05/05/18 05:50 05:49 20:26 POC Glucose Less than 35 L* 38 L* 305 H 05/05/18 15:32 POC Glucose 290 H Phys Exam - Physical Examination HEENT: PERRLA, moist MMs Neck: no JVD, supple Respiratory: no wheezing, no rales Cardiovascular: RRR, no significant murmur Gastrointestinal: soft, no distention, positive bowel sounds Musculoskeletal: no edema, pulses present Neurological: non-focal, moves all 4 limbs Psychiatric: normal affect, A&O x 3 Dx/Plan (1) Syncope and collapse Code(s): R55 - SYNCOPE AND COLLAPSE Status: Resolved (2) Rib fracture Code(s): S22.39XA - FRACTURE OF ONE RIB, UNSP SIDE, INIT FOR CLOS FX Status: Acute Qualifiers: Encounter type: subsequent encounter Fracture type: closed Laterality: right (3) DM type 2 (diabetes mellitus, type 2) Status: Chronic Qualifiers: Diabetes mellitus medical terminologist insulin use: with medical terminologist use Diabetes mellitus complication status: with unspecified complications Qualified Code(s) : E11.8 - Type 2 diabetes mellitus with unspecified complications; Z79.4 - skilled nursing (current) use of insulin; Z79.4 - skilled nursing (current) use of insulin; Z79.4 - dedicated intermodal truck driver (current) use of insulin; Z79.4 - dedicated intermodal truck driver (current) use of insulin (4) CAD (coronary artery disease) Code(s): I25.10 - ATHSCL HEART DISEASE OF [place] CORONARY ARTERY W/O ANG PCTRS Status: Chronic Qualifiers: [place] vs. transplanted heart: [place] heart Associated angina: without angina Comment: No evidenceof CAD per cardioogy. Will continue with BB/ STatin/ Aspirin. (5) Dyslipidemia Code(s): E78.5 - HYPERLIPIDEMIA, UNSPECIFIED Status: Chronic (6) HTN (hypertension) Code(s): I10 - ESSENTIAL (PRIMARY) HYPERTENSION Status: Chronic Qualifiers: (7) Schizophrenia Code(s): F20.9 - SCHIZOPHRENIA, UNSPECIFIED Status: Chronic Qualifiers: Schizophrenia type: unspecified (8) Seizure disorder Code(s): G40.909 - EPILEPSY, UNSP, NOT INTRACTABLE, WITHOUT STATUS EPILEPTICUS Status: Chronic - Plan hemostable -: may dc to rehab if accepted or home with PT -: lidocaine tts, motrin tid, i.spirometry -: has multiple right rib fractures -: continue schizophrenia meds as before * . hypoglycemic this am, dc lantus, encourage po intake, labs this am, will f/u. Review of Systems - Medications/Allergies Allergies/Adverse Reactions: Allergies Allergy/AdvReac Type Severity Reaction Status Date / Time peanut Allergy Anaphylaxis Verified 05/03/18 02:37 prednisone Allergy Hives Verified 05/03/18 02:37 steroids Allergy Uncoded 03/18/18 12:47 Medications: Current Medications Hydrocodone Bitart/Acetaminophen ([place] 10/325) 1 tab PO Q6H PRN PRN Reason: Pain Last Admin: 05/06/18 09:48 Dose: 1 tab Al Hydroxide/Mg Hydroxide (Maalox Plus) 30 ml PO Q6H PRN PRN Reason: Heartburn or Indigestion Atorvastatin Calcium (Lipitor) 40 mg PO HS [facility] Last Admin: 05/05/18 20:18 Dose: 40 mg Buspirone HCl (Buspar) 15 mg PO TID [facility] Last Admin: 05/05/18 20:18 Dose: 15 mg Calcium Carbonate (Tums) 1,000 mg PO Q4H PRN PRN Reason: Heartburn or Indigestion Last Admin: 05/05/18 11:35 Dose: 1,000 mg Carvedilol (Coreg) 3.125 mg PO BID [facility] Last Admin: 05/06/18 09:36 Dose: 3.125 mg Clonidine (Catapres) 0.2 mg PO BID [facility] Last Admin: 05/06/18 09:36 Dose: 0.2 mg Dextrose/Water (Dextrose 50%) 25 gm SLOW IVP PRN PRN PRN Reason: Hypoglycemia Last Admin: 05/06/18 06:23 Dose: 25 gm Gabapentin (Neurontin) 300 mg PO [facility] Last Admin: 05/05/18 20:18 Dose: 300 mg Glucagon (Glucagon) 1 mg IM PRN PRN PRN Reason: Hypoglycemia Dextrose/Water (D5w) 1,000 mls @ 0 mls/hr IV .Q0M PRN; As Directed PRN Reason: Hypoglycemia Ibuprofen (Motrin) 400 mg PO TID [facility] Insulin Human Lispro (Humalog) 0 units SC .MODERATE SLIDING SC PRN PRN Reason: Moderate Correctional Scale Last Admin: 05/05/18 15:48 Dose: 6 units Insulin Human Lispro (Humalog) 0 units SC .BEDTIME SLIDING SC PRN PRN Reason: Bedtime Correctional Scale Last Admin: 05/05/18 20:25 Dose: 4 unit Lidocaine (Lidoderm 5% Patch) 1 patch TD DAILY [facility] Last Admin: 05/06/18 09:36 Dose: 1 patch Miscellaneous Medication (Lidocaine Patch Removal) 1 each TOP 2100 [facility] Last Admin: 05/05/18 21:40 Dose: 1 each Nitroglycerin (Nitrostat) 0.4 mg PO Q5MIN PRN PRN Reason: Chest Pain Pantoprazole Sodium (Protonix) 40 mg PO DAILY [facility] Last Admin: 05/06/18 09:37 Dose: 40 mg Quetiapine Fumarate (Seroquel) 400 mg PO [facility] Last Admin: 05/05/18 20:19 Dose: 400 mg Sertraline HCl (Zoloft) 100 mg PO DAILY [facility] Last Admin: 05/06/18 09:37 Dose: 100 mg Sodium Chloride (Flush - Normal Saline) 10 ml IVF Q12HR [facility] Last Admin: 05/06/18 09:37 Dose: 10 ml Sodium Chloride (Flush - Normal Saline) 10 ml IVF PRN PRN PRN Reason: Saline Flush
[2018-05-06] MEDS: busPIRone HCl 5 MG TAB PO SCH ×3 (11:56→20:06)
[2018-05-06] MEDS: HumaLOG 300 UNITS/3 ML VIAL SC PRN ×2 (11:56→17:08)
[2018-05-06 13:54] LABS: #Eosinphils 0.2 thou/uL (0.0-0.7); #Lymphocytes 1.6 thou/uL (1.20-3.40); #Monocytes 0.5 thou/uL (0.11-0.59); #Neutrophils 3.6 thou/uL (1.40-6.50); %Basophils 0.7 % (0.0-1.0); %Eosinophils 3.6 % (0.0-10.0); %Lymphocytes 26.4 % (21.0-51.0); %Monocytes 8.7 % (0.0-10.0); %Neutrophils 60.6 % (42.0-75.0); Hemoglobin 14.2 g/dL (14.0-18.0); Mean Corpuscular HGB CONC 33.6 g/dL (32.0-36.0); Mean Corpuscular Hemoglobin 27.8 pg (27.0-31.0); Mean Corpuscular Volume 82.7 fL (78.0-98.0); Mean Platelet Volume 7.5 fL (7.4-10.4); Platelet Count 220 thou/uL (130-400); RBC Distribution Width 13.8 % (11.5-14.5); Red Blood Cell (RBC) Count 5.12 mill/uL (4.70-6.10); White Blood Cell (WBC) Count 5.9 thou/uL (4.8-10.8)
[2018-05-06] MEDS: Ibuprofen 200 MG TAB PO SCH ×2 (15:46→20:09)
[2018-05-06] MEDS: Atorvastatin Calcium 40 MG TAB PO SCH (20:07)
[2018-05-06] MEDS: Gabapentin 300 MG CAP PO SCH (20:07)
[2018-05-06] MEDS ORDERED: Lidocaine Patch Removal 1 EACH TOP SCH (21:00)
[2018-05-06] MEDS: Lidocaine Patch Removal 1 EACH TOP SCH (21:44)
[2018-05-07] MEDS: Lidocaine 5% Patch TD SCH (08:40)
[2018-05-07] MEDS: busPIRone HCl 5 MG TAB PO SCH ×2 (08:41→15:22)
[2018-05-07] MEDS: Carvedilol 3.125 MG TAB PO SCH (08:42)
[2018-05-07] MEDS: cloNIDine 0.2 MG TAB PO SCH (08:43)
[2018-05-07] MEDS: Ibuprofen 200 MG TAB PO SCH ×2 (08:44→15:25)
[2018-05-07] MEDS: Calcium Carbonate 500 MG ChewTAB PO PRN (09:33)
--- NOTE | 2018-05-07 10:24 | PDOC.PN ---
- Subjective Encounter Start Date: 05/07/18 Encounter Start Time: 10:00 Subjective: awake, pain is better this am - Objective MAR Reviewed: Yes Vital Signs & Weight: Vital Signs (12 hours) Temp Pulse Resp BP BP Pulse Ox 05/07/18 08:43 134/58 L 05/07/18 08:00 98.2 F 74 20 95 05/07/18 07:35 98.2 F 74 20 114/59 L 95 Weight Weight 188 lb 1.6 oz I&O: 05/06/18 05/07/18 05/08/18 06:59 06:59 06:59 Intake Total 1650 Output Total 1025 700 Balance -1025 950 Result Diagrams: 05/06/18 13:40 05/05/18 05:07 Additional Labs: Accuchecks 05/07/18 05/06/18 05/06/18 06:29 20:15 16:53 POC Glucose 97 112 H 169 H 05/06/18 05/06/18 05/06/18 11:23 05:50 05:49 POC Glucose 150 H Less than 35 L* 38 L* Phys Exam - Physical Examination HEENT: PERRLA, moist MMs Neck: no JVD, supple Respiratory: no wheezing, no rales Cardiovascular: RRR, no significant murmur Gastrointestinal: soft, non-tender, positive bowel sounds Musculoskeletal: no edema, pulses present Neurological: non-focal, moves all 4 limbs Psychiatric: A&O x 3 Dx/Plan (1) Syncope and collapse Code(s): R55 - SYNCOPE AND COLLAPSE Status: Resolved (2) Rib fracture Code(s): S22.39XA - FRACTURE OF ONE RIB, UNSP SIDE, INIT FOR CLOS FX Status: Acute Qualifiers: Encounter type: subsequent encounter Fracture type: closed Laterality: right (3) DM type 2 (diabetes mellitus, type 2) Status: Chronic Qualifiers: Diabetes mellitus director of strategic partnerships insulin use: with chcf use Diabetes mellitus complication status: with unspecified complications Qualified Code(s) : E11.8 - Type 2 diabetes mellitus with unspecified complications; Z79.4 - alf (current) use of insulin; Z79.4 - packing floor worker (current) use of insulin; Z79.4 - packing floor worker (current) use of insulin; Z79.4 - packing floor worker (current) use of insulin (4) CAD (coronary artery disease) Code(s): I25.10 - ATHSCL HEART DISEASE OF [place] CORONARY ARTERY W/O ANG PCTRS Status: Chronic Qualifiers: [place] vs. transplanted heart: [place] heart Associated angina: without angina Comment: No evidenceof CAD per cardioogy. Will continue with BB/ STatin/ Aspirin. (5) Dyslipidemia Code(s): E78.5 - HYPERLIPIDEMIA, UNSPECIFIED Status: Chronic (6) HTN (hypertension) Code(s): I10 - ESSENTIAL (PRIMARY) HYPERTENSION Status: Chronic Qualifiers: (7) Schizophrenia Code(s): F20.9 - SCHIZOPHRENIA, UNSPECIFIED Status: Chronic Qualifiers: Schizophrenia type: unspecified (8) Seizure disorder Code(s): G40.909 - EPILEPSY, UNSP, NOT INTRACTABLE, WITHOUT STATUS EPILEPTICUS Status: Chronic - Plan hemostable -: continue lidocaine patch and motrin -: may dc anytime to rehab or home with HH and PT * . Review of Systems - Medications/Allergies Allergies/Adverse Reactions: Allergies Allergy/AdvReac Type Severity Reaction Status Date / Time peanut Allergy Anaphylaxis Verified 05/03/18 02:37 prednisone Allergy Hives Verified 05/03/18 02:37 steroids Allergy Uncoded 03/18/18 12:47 Medications: Current Medications Hydrocodone Bitart/Acetaminophen ([place] 10/325) 1 tab PO Q6H PRN PRN Reason: Pain Last Admin: 05/06/18 21:39 Dose: 1 tab Al Hydroxide/Mg Hydroxide (Maalox Plus) 30 ml PO Q6H PRN PRN Reason: Heartburn or Indigestion Atorvastatin Calcium (Lipitor) 40 mg PO HS [facility] Last Admin: 05/06/18 20:07 Dose: 40 mg Buspirone HCl (Buspar) 15 mg PO TID [facility] Last Admin: 05/07/18 08:41 Dose: 15 mg Calcium Carbonate (Tums) 1,000 mg PO Q4H PRN PRN Reason: Heartburn or Indigestion Last Admin: 05/07/18 09:33 Dose: 1,000 mg Carvedilol (Coreg) 3.125 mg PO BID [facility] Last Admin: 05/07/18 08:42 Dose: 3.125 mg Clonidine (Catapres) 0.2 mg PO BID [facility] Last Admin: 05/07/18 08:43 Dose: 0.2 mg Dextrose/Water (Dextrose 50%) 25 gm SLOW IVP PRN PRN PRN Reason: Hypoglycemia Last Admin: 05/06/18 06:23 Dose: 25 gm Gabapentin (Neurontin) 300 mg PO HS [facility] Last Admin: 05/06/18 20:07 Dose: 300 mg Glucagon (Glucagon) 1 mg IM PRN PRN PRN Reason: Hypoglycemia Dextrose/Water (D5w) 1,000 mls @ 0 mls/hr IV .Q0M PRN; As Directed PRN Reason: Hypoglycemia Ibuprofen (Motrin) 400 mg PO TID [facility] Last Admin: 05/07/18 08:44 Dose: Not Given Insulin Human Lispro (Humalog) 0 units SC .MODERATE SLIDING SC PRN PRN Reason: Moderate Correctional Scale Last Admin: 05/06/18 17:08 Dose: 2 units Insulin Human Lispro (Humalog) 0 units SC .BEDTIME SLIDING SC PRN PRN Reason: Bedtime Correctional Scale Last Admin: 05/05/18 20:25 Dose: 4 unit Lidocaine (Lidoderm 5% Patch) 1 patch TD DAILY [facility] Last Admin: 05/07/18 08:40 Dose: 1 patch Miscellaneous Medication (Lidocaine Patch Removal) 1 each TOP 2100 [facility] Last Admin: 05/06/18 21:44 Dose: 1 each Nitroglycerin (Nitrostat) 0.4 mg PO Q5MIN PRN PRN Reason: Chest Pain Pantoprazole Sodium (Protonix) 40 mg PO DAILY [facility] Last Admin: 05/07/18 08:42 Dose: 40 mg Quetiapine Fumarate (Seroquel) 400 mg PO HS [facility] Last Admin: 05/06/18 20:07 Dose: 400 mg Sertraline HCl (Zoloft) 100 mg PO DAILY [facility] Last Admin: 05/07/18 08:44 Dose: 100 mg Sodium Chloride (Flush - Normal Saline) 10 ml IVF Q12HR [facility] Last Admin: 05/07/18 08:44 Dose: 10 ml Sodium Chloride (Flush - Normal Saline) 10 ml IVF PRN PRN PRN Reason: Saline Flush
--- NOTE | 2018-05-07 12:43 | PDOC.CTH ---
Cardiology Progress Note - Subjective No new issues. - Objective Vital Signs Temp Pulse Resp BP BP Pulse Ox 05/07/18 11:48 98.1 F 74 18 160/95 H 95 05/07/18 08:43 134/58 L 05/07/18 08:00 98.2 F 74 20 95 05/07/18 07:35 98.2 F 74 20 114/59 L 95 Weight 188 lb 1.6 oz 05/06/18 05/07/18 05/08/18 06:59 06:59 06:59 Intake Total 1650 Output Total 1025 700 Balance -1025 950 - Physical Examination General/Neuro: alert & oriented x3, NAD Neck: no JVD present Lungs: CTA, unlabored respirations Heart: RRR Abdomen: NT/ND Extremities: other: (no edema) - Labs Result Diagrams: 05/06/18 13:40 05/05/18 05:07 Troponin/CKMB CK-MB (CK-2) 2.3 ng/mL (0-6.6) 05/02/18 23:27 Troponin I 0.053 ng/mL (< 0.028) H 05/03/18 11:44 - Assessment/Plan 1. Syncope 2. CAD, stable 3. Rib fractures 4. S/P CABG PLAN: - Continue current meds. - Normal LV function. - Would only increase anti hypertensives if STANDING BP is also high. - May discharge home any time form cardiac perspective. - Follow up in 2 months.
[2018-05-07] MEDS ORDERED: Lidocaine 1% (PF) 30 ML VIAL ONE (14:08)
[2018-05-07] MEDS ORDERED: Bupivacaine/Epinephrine 0.25% 30 ML VIAL ONE (14:08)
[2018-05-07] MEDS: HumaLOG 300 UNITS/3 ML VIAL SC PRN (17:12)
[2018-05-07 20:12] VITALS: BP 142/69; TEMP 98.8
--- NOTE | 2018-05-08 02:24 | DIS ---
DATE OF ADMISSION: 05/02/2018 DATE OF DISCHARGE: 05/07/2018 DISCHARGE DISPOSITION: To inpatient rehabilitation. PRIMARY DISCHARGE DIAGNOSES: Syncope with fall and right rib fractures. SECONDARY DISCHARGE DIAGNOSES: Diabetes mellitus type 2, coronary artery disease, dyslipidemia, hype rtension, history of schizophrenia, seizure disorder. PROCEDURES DONE DURING HOSPITALIZATION: Echo with 2D Doppler showed an EF of 55% -60%, grade 1/3 kym stolic dysfunction and inferior hypokinesis, moderate concentric LVH. CT chest showed multiple right -sided rib fractures including right 6th, 7th, 8th, 9th and 10th ribs, which were nondisplaced. No p neumothorax or effusion was seen. CT cervical spine showed no spinal fractures. There was hypodensi ty seen in the left thyroid lobe. Right shoulder, 3 view x-rays done showed right rib fractures. CT brain showed no significant change, no acute post-traumatic sequelae were seen. H&H 14 and 42, plat elet count 220. Total cholesterol 154, triglycerides 117, LDL 91, HDL 40. Troponin I was indetermin ate peaking up to 0.09, CK-MB 2.5. Initial BUN and creatinine of 20 and 1.7, subsequent BUN of 13, c reatinine 0.9. INPATIENT CONSULTS: Dr. Bey for Cardiology. DISCHARGE MEDICATIONS: Motrin 400 mg p.o. three times daily, lidocaine 5% transdermal patch once nai ly for 7 days, omeprazole 40 mg daily, Seroquel 400 mg p.o. at bedtime, Zoloft 100 mg p.o. daily, Nor co p.r.n. for pain, gabapentin 300 mg p.o. at bedtime, Coreg 3.125 mg p.o. twice daily, clonidine 0.2 mg p.o. twice daily, buspirone 15 mg p.o. 3 times daily, atorvastatin 40 mg p.o. at bedtime, aspirin 81 mg p.o. daily. DISCHARGE PLAN: The patient is being discharged to inpatient rehab for further recuperation prior to going home. BRIEF COURSE DURING HOSPITALIZATION: Patient initially got admitted on the , following a fall. Ana barrios was trying to fix his couch and fell backwards after feeling dizzy. He hit his right side of his s houlder and chest. On arrival, the patient had multiple trauma protocol x-rays and CAT scans done. All of this revealed right-sided rib fractures with no lung contusion as such. He had indeterminate cardiac enzymes, likely due to rib fractures and the pain. He was admitted to telemetry and has had serial troponins done. He has had cardiac consultation with Dr. Bey as well. The patient was dec onditioned and is slowly recovering. He still has right lower chest wall pain. His pain is currentl y controlled on Motrin and lidocaine patch and needs to continue the same. Due to deconditioning, th e patient is being discharged to inpatient rehab for further recuperation. A total of 35 minutes was spent on discharge plan. Please see a [id number] documentation on [facility] for the day of discharge.
--- NOTE | 2018-05-08 13:25 | EKG ---
Test Reason : Blood Pressure : / mmHG Vent. Rate : 090 BPM Atrial Rate : 090 BPM P-R Int : 136 ms QRS Dur : 076 ms QT Int : 392 ms P-R-T Axes : 057 032 149 degrees QTc Int : 479 ms Normal sinus rhythm Possible Left atrial enlargement Septal infarct , age undetermined Abnormal ECG No ST elevation/AZ ST depression V5, V6, I,aVL,II Confirmed by ELISA JONES M.D. ([id number]), assignment editor CHRISTOPHER SIMON ([id number]) on 05/08/2018 1:24:34 PM Referred By: Confirmed By:ELISA JONES M.D.
== END 2018-05-07 20:22 | DRG 184 ==
LOC: ERS 18:14 → OBSVTOIN 05-03 01:49 → 2SW 05-03 01:49 → 2NO 05-03 12:58 → ONC 05-05 13:03
PROVIDERS: ADMIT Internal Medicine Infectious Disease; ATTEND Internal Medicine Infectious Disease
DX: S22.41XA Multiple fractures of ribs, right side, initial encounter for closed fracture (principal); N17.9 Acute kidney failure, unspecified; W18.39XA Other fall on same level, initial encounter; Y93.89 Activity, other specified; Y92.018 Other place in single-family (private) house as the place of occurrence of the external cause; I25.10 Atherosclerotic heart disease of native coronary artery without angina pectoris; E78.5 Hyperlipidemia, unspecified; G40.909 Epilepsy, unspecified, not intractable, without status epilepticus; E11.65 Type 2 diabetes mellitus with hyperglycemia; Z86.718 Personal history of other venous thrombosis and embolism; Z79.01 Long term (current) use of anticoagulants; Z95.1 Presence of aortocoronary bypass graft; Z79.4 Long term (current) use of insulin; F20.9 Schizophrenia, unspecified; F17.210 Nicotine dependence, cigarettes, uncomplicated; F31.9 Bipolar disorder, unspecified; I95.1 Orthostatic hypotension; I25.5 Ischemic cardiomyopathy; I11.9 Hypertensive heart disease without heart failure
CPT/HCPCS: 36415; 36416; 70450; 71045; 71260; 72125; 80048; 80053; 80061; 82550; 82553; 83880; 84484; 85025; 93005; 93306; 94760; 96360; 96372; A4216; G8978-GP-CK; G8979-GP-CI; G8987-GO-CK; G8988-GO-CI; J1642; J2001; J2270

== ENCOUNTER 2018-05-15 22:06 | Emergency (ER) | payer OTHER ==
[2018-05-15 23:30] LABS: #Basophils 0.1 thou/uL (0.0-0.2); #Eosinphils 0.2 thou/uL (0.0-0.7); #Lymphocytes 1.6 thou/uL (1.20-3.40); #Monocytes 1.2 thou/uL (0.11-0.59); #Neutrophils 14.1 thou/uL (1.40-6.50); %Basophils 0.3 % (0.0-1.0); %Eosinophils 1.3 % (0.0-10.0); %Lymphocytes 9.2 % (21.0-51.0); %Monocytes 7.2 % (0.0-10.0); Hemoglobin 15.2 g/dL (14.0-18.0); Mean Corpuscular Hemoglobin 27.4 pg (27.0-31.0); Mean Platelet Volume 6.9 fL (7.4-10.4); Platelet Count 283 thou/uL (130-400); RBC Distribution Width 13.8 % (11.5-14.5); Red Blood Cell (RBC) Count 5.54 mill/uL (4.70-6.10); White Blood Cell (WBC) Count 17.2 thou/uL (4.8-10.8)
[2018-05-15 23:46] LABS: ALT (SGPT) 15 U/L (8-55); AST (SGOT) 15 U/L (5-34); Albumin 4.7 g/dL (3.5-5.0); Alkaline Phosphatase 131 U/L (40-150); Anion Gap 17 mmol/L (10-20); BUN (Urea Nitrogen) 18 mg/dL (8.4-25.7); Bilirubin, Total 0.5 mg/dL (0.2-1.2); Calc. Creatinine Clearance 0 mL/min (70-130); Calcium 9.8 mg/dL (7.8-10.44); Carbon Dioxide 22 mmol/L (22-29); Chloride 102 mmol/L (98-107); Estimated GFR-MDRD 79; Globulin 3.5 g/dL (2.4-3.5); Glucose 114 mg/dL (70-105); Potassium 3.1 mmol/L (3.5-5.1); Protein, Total 8.2 g/dL (6.0-8.3); Sodium 138 mmol/L (136-145)
[2018-05-16 00:49] LABS: CKMB 1.9 ng/mL (0-6.6); Troponin I Less than 0.010 ng/mL (< 0.028)
[2018-05-16] MEDS ORDERED: Ondansetron ODT 4 MG TAB ONE (01:48)
--- NOTE | 2018-05-16 11:01 | RAD ---
RIGHT SHOULDER 3 VIEWS: Date: 05/16/18 PROVIDED CLINICAL HISTORY: Right shoulder pain. FINDINGS/IMPRESSION: Comparison with 05/02/18. Degenerative changes are again seen. No evidence for fracture or other acute osseous abnormality. If there is persistent clinical concern, conservative management and follow-up imaging are advised. POS: MAURICE
== END 2018-05-16 02:12 | disposition home or self-care (01) ==
LOC: ERS 22:06
DX: E10.649 Type 1 diabetes mellitus with hypoglycemia without coma (principal); I10 Essential (primary) hypertension; F31.9 Bipolar disorder, unspecified; F41.9 Anxiety disorder, unspecified; G89.29 Other chronic pain; M54.9 Dorsalgia, unspecified; I25.2 Old myocardial infarction; Z86.73 Personal history of transient ischemic attack (TIA), and cerebral infarction without residual deficits
CPT/HCPCS: 36415; 36416; 80053; 82553; 84484; 85025; 93005; Q0162

== ENCOUNTER 2018-06-10 19:02 | Emergency (ER) | payer OTHER ==
[2018-06-10] MEDS ORDERED: Dextrose 50% Abboject 50 ML SYRINGE ONE ×2 (19:05→20:24)
[2018-06-10 19:18] LABS: #Basophils 0.1 thou/uL (0.0-0.2); #Eosinphils 0.2 thou/uL (0.0-0.7); #Lymphocytes 2.4 thou/uL (1.20-3.40); #Monocytes 1.1 thou/uL (0.11-0.59); #Neutrophils 8.4 thou/uL (1.40-6.50); %Basophils 0.6 % (0.0-1.0); %Eosinophils 1.7 % (0.0-10.0); %Lymphocytes 19.5 % (21.0-51.0); %Monocytes 8.7 % (0.0-10.0); %Neutrophils 69.5 % (42.0-75.0); Hemoglobin 15.8 g/dL (14.0-18.0); Mean Corpuscular HGB CONC 32.8 g/dL (32.0-36.0); Mean Corpuscular Hemoglobin 27.2 pg (27.0-31.0); Mean Platelet Volume 6.8 fL (7.4-10.4); Platelet Count 278 thou/uL (130-400); RBC Distribution Width 14.4 % (11.5-14.5); White Blood Cell (WBC) Count 12.1 thou/uL (4.8-10.8)
[2018-06-10 19:43] LABS: ALT (SGPT) 21 U/L (8-55); AST (SGOT) 26 U/L (5-34); Albumin 4.6 g/dL (3.5-5.0); Alkaline Phosphatase 150 U/L (40-150); Anion Gap 16 mmol/L (10-20); BUN (Urea Nitrogen) 15 mg/dL (8.4-25.7); Bilirubin, Total 0.4 mg/dL (0.2-1.2); CKMB 3.1 ng/mL (0-6.6); Calc. Creatinine Clearance 0 mL/min (70-130); Calcium 10.5 mg/dL (7.8-10.44); Carbon Dioxide 27 mmol/L (22-29); Chloride 104 mmol/L (98-107); Estimated GFR-MDRD 79; Globulin 3.9 g/dL (2.4-3.5); Glucose 68 mg/dL (70-105); Potassium 4.4 mmol/L (3.5-5.1); Protein, Total 8.5 g/dL (6.0-8.3); Sodium 143 mmol/L (136-145); Troponin I Less than 0.010 ng/mL (< 0.028)
[2018-06-10 20:25] LABS: Bilirubin Negative (Negative); Blood, Urine Negative (Negative); Clarity CLEAR (Clear); Glucose, Urine (Dipstick) >=1000 mg/dL (Negative); Leukocyte Negative (Negative); Nitrite Negative (Negative); Protein, Urine (Dipstick) Negative (Neg-Trace); Specific Gravity, Urine 1.019 (1.002-1.036)
== END 2018-06-10 20:33 | disposition home or self-care (01) ==
LOC: ERS 19:02
DX: E10.649 Type 1 diabetes mellitus with hypoglycemia without coma (principal); I10 Essential (primary) hypertension; I25.2 Old myocardial infarction; F31.9 Bipolar disorder, unspecified; F41.9 Anxiety disorder, unspecified; F20.9 Schizophrenia, unspecified; Z86.73 Personal history of transient ischemic attack (TIA), and cerebral infarction without residual deficits
CPT/HCPCS: 36416; 80053; 81003; 82553; 84484; 85025; 93005; 96374; 96376